=== PATIENT | male | born 1970 | race Caucasian/White ===

== ENCOUNTER 2020-01-03 13:50 | Inpatient (IN) | payer OTHER, SELFPAY ==
--- NOTE | ~2020-01-03 | CT_ITS ---
EXAMINATION: CT abdomen pelvis w con EXAM DATE: 01/03/2020 14:57 INDICATION: Nausea and vomiting. TECHNIQUE: Spiral CT of the abdomen and pelvis was performed following intravenous injection of 100 m L Omnipaque 350. Axial, coronal and sagittal images were reviewed. The dose-length product (DLP) fo r this examination was 723.19 mGy-cm. The exposure was tailored according to patient size (auto mA e xposure control), and iterative reconstruction (ASIR) was used as additional dose reduction technique . Comparison is made to prior examination from 11/09/2015. FINDINGS: There is large ulceration within the duodenal bulb, appears to be nearly through the wall. There is reactive edema in the region, but no free intraperitoneal gas or fluid, no perforation. The liver, spleen, adrenal glands and pancreas are unremarkable. Gallbladder is unremarkable. No bilia ry obstruction. Portal and splenic veins are patent. Kidneys enhance symmetrically. There is no hy dronephrosis. There is a 5 mm right inferior calyceal stone. The prostate is unremarkable. The blad get is unremarkable. There is no retroperitoneal or pelvic lymphadenopathy. There is mild scattere d arteriosclerotic disease. Small bilateral inguinal fat-containing hernias. Small umbilical fat-cont aining hernia. The appendix is not positively visualized. There is no pericecal inflammatory change to suggest appe ndicitis. There is moderate to large amount of colonic stool. No free intraperitoneal gas. The heart is normal in size. There are no pericardial or pleural effusions. The lung bases are unremark able. There are no osteoblastic or osteolytic lesions identified. IMPRESSION: 1. Severe duodenal bulb peptic ulcer disease without perforation. 2. Small fat-containing hernias. 3. Right nephrolithiasis. 4. Moderate to large amount of colonic stool Reviewed, dictated and finalized at location A.
[2020-01-03 13:53] VITALS: BP 171/114; PULSE 88; RESP 20; TEMP 36.4; O2SAT 99
[2020-01-03 14:16] LABS: Basophils Absolute Auto 0.1 K/mm3 (0.0-0.1); Basophils Percent Auto 0.5 % (0.2-1.2); Eosinophils Absolute Auto 0.2 K/mm3 (0-0.3); Eosinophils Percent Auto 1.6 % (0-4.4); Hematocrit 43.2 % (42.0-52.0); Hemoglobin 14.2 g/dL (14.0-18.0); Immature Granulocyte Absolute 0.05 K/mm3 (0.00-0.031); Immature Granulocyte Percent A 0.4 % (0-0.5); Lymphocytes Percent Auto 25.3 % (18.3-44.2); Mean Corpuscular HGB Conc 32.9 g/dl (32-36); Mean Corpuscular Hemoglobin 30.1 pg (26-34); Mean Corpuscular Volume 91.5 fl (80-100); Mean Platelet Volume 9.7 fl (7.4-10.4); Monocytes Percent Auto 7.6 % (2.6-8.5); Neutrophils Absolute Auto 8.4 K/mm3 (1.3-6.7); Neutrophils Percent Auto 64.6 % (45.5-73.1); Platelet Count Result 393 k/mm3 (150-375); Red Blood Count 4.72 M/mm3 (4.6-6.20); Red Cell Distribution Width 12.9 % (11.5-14.5)
--- NOTE | 2020-01-03 14:22 | ED.ABDPAIN ---
HPI - Abdominal Pain General Chief Complaint: Abdominal Pain Stated Complaint: abd Time Seen by Provider: 01/03/20 13:55 Source: patient Mode of arrival: ambulatory Limitations: no limitations History of Present Illness HPI narrative: This is a 49 year old male that presents to the ER for abdominal pain x 1 week. Reports sharp right sided abdominal pain. Reports he has been unable to have a bowel movement. Also reports nausea and vomiting. Reports he feels like he has not been able to urinate either. Denies fever, diarrhea, or dysuria. Related Data Home Medications Medication Instructions Recorded Confirmed No Home Medications 01/03/20 01/03/20 Allergies Allergy/AdvReac Type Severity Reaction Status Date / Time No Known Allergies Allergy Mild Verified 01/03/20 14:01 Review of Systems Review of Systems: Narrative: CONSTITUTIONAL: Denies fever GASTROINTESTINAL: Reports abdominal pain, nausea, vomiting. Denies diarrhea. GENITOURINARY: Denies dysuria or hematuria. All systems reviewed & are unremarkable except as noted in HPI and below PMFSH Past Medical History Medical History (Updated 01/03/20 @ 17:11 by Patti Santamaria PA-C) History of gastroesophageal reflux (GERD) Social History Social History (Updated 01/03/20 @ 14:24 by Patti Santamaria PA-C) Smoking status: Current every day smoker Substance use: never Exam Narrative: Exam Narrative: GENERAL: Well-appearing, well-nourished, and in mild acute distress due to pain. HEAD: Normocephalic, atraumatic. EYES: EOMI. CHEST: Clear to auscultation. No respiratory distress. No wheezes rales or rhonchi HEART: Regular rate and rhythm. No murmur heard. Normal peripheral pulses. ABDOMEN: Soft, nondistended, normal active bowel sounds. Tender to palpation of the right side of the abdomen, without guarding EXTREMITIES: Normal range of motion. No edema. SKIN: Warm, dry, no rash. NEURO: No focal deficits. Alert and oriented x3. PSYCH: Normal mood and affect Course Consultations Consultation #1: Spoke with Dr. Aguilar about patient and workup who would like to give patient option to stay for EGD tomorrow. Patient will be started on PPI. Date: 01/03/20 Time: 17:09 Consultation #2: Spoke with hospitalist about patient and work-up who accepts admission Date: 01/03/20 Time: 17:09 Vital Signs Vital signs: Vital Signs Temperature 97.5 F L 01/03/20 13:53 Pulse Rate 88 01/03/20 13:53 Respiratory Rate 20 01/03/20 13:53 Blood Pressure 171/114 H 01/03/20 13:53 Pulse Oximetry 99 01/03/20 13:53 Temperature 97.5 F L 01/03/20 13:53 Pulse Rate 79 01/03/20 16:15 Respiratory Rate 14 01/03/20 16:15 Blood Pressure 158/100 H 01/03/20 16:15 Pulse Oximetry 100 01/03/20 16:15 MDM - Abdominal Pain MDM Narrative Medical decision making narrative: Patient presents to the emergency department for abdominal pain for the last week. Patient is afebrile and nontoxic-appearing. CBC with mild leukocytosis to 13. Patient's hemoglobin is normal. Metabolic panel without acute changes. Lactic acid is not elevated. UA is normal. CT of the abdomen pelvis shows severe duodenal bulb ulcer disease without perforation. Spoke with Dr. Aguilar about patient and workup who would like to give patient option to stay for EGD tomorrow. Patient will be started on PPI. Spoke with the hospitalist about patient work-up who accepts admission Lab Data Attestation: I reviewed the patient's lab results. Result diagrams: 01/03/20 14:07 01/03/20 14:07 Labs: Lab Results 01/03/20 01/03/20 01/03/20 Range/Units 14:07 14:07 14:29 WBC 13.0 H (4.5-10.0) K/mm3 RBC 4.72 (4.6-6.20) M/mm3 Hgb 14.2 (14.0-18.0) g/dL Hct 43.2 (42.0-52.0) % MCV 91.5 (80-100) fl MCH 30.1 (26-34) pg MCHC 32.9 (32-36) g/dl RDW 12.9 (11.5-14.5) % Plt Count 393 H (150-375) k/mm3 MPV 9.7 (7.4-10.4) fl I
[2020-01-03] MEDS: ONDANSETRON INJ 4 MG/2 ML VIAL IV PUSH (14:27)
[2020-01-03] MEDS: MORPHINE SULFATE 4 MG/ML INJ IV PUSH ×2 (14:28→17:45)
[2020-01-03] MEDS: FAMOTIDINE 20 MG/2 ML VIAL IV PUSH (14:28)
[2020-01-03 14:30] LABS: Alanine Aminotransferase 12 U/L (4-50); Albumin Level 4.4 g/dL (3.5-5.1); Alkaline Phosphatase 91 U/L (38-126); Aspartate Amino Transferase 18 U/L (17-59); Bilirubin,Total < 0.1 mg/dL (0.2-1.3); Blood Urea Nitrogen 13 mg/dL (9-20); Calcium 9.5 mg/dL (8.4-10.2); Carbon Dioxide 30 mmol/L (22-30); Chloride 100 mmol/L (98-107); Estimated CRCL calculation 99 ml/min; Estimated Glomerular Filt Rate > 60; Glucose 113 mg/dL (75-110); Lipase 74 U/L (23-300); Potassium 4.3 mmol/L (3.4-5.0); Sodium 137 mmol/L (137-145)
[2020-01-03] MEDS: SODIUM CHLORIDE 0.9% IV 500 ML 999 ML IV CONT (14:31)
[2020-01-03 14:38] LABS: Add Urine Microscopic? NO; Appearance Urine Clear (Clear); Bilirubin Urine Negative (Negative); Blood Urine Negative (Negative); Color Urine Straw (Yellow); Glucose Urine UA Negative (Negative); Ketones Urine Negative (Negative); Leukocyte Esterase Ur Negative LEU/UL (Negative); Nitrate Urine Negative (Negative); Protein Urine Negative (Negative); Specific Grav Ur 1.012 (1.001-1.035); Urobilinogen Urine Negative mg/dL (<2.0)
[2020-01-03 14:47] LABS: Lactic Acid Reflex 1.7 mmol/L (0.7-2.1)
[2020-01-03] MEDS: PANTOPRAZOLE SODIUM IV 40 MG VIAL IV PUSH (16:05)
[2020-01-03 16:15] VITALS: BP 158/100; PULSE 79; RESP 14; O2SAT 100
[2020-01-03] MEDS: hydrALAZINE HCL 20 MG/ML VIAL 10 MG IV PUSH (17:07)
[2020-01-03] MEDS: METOCLOPRAMIDE HCL INJ 10 MG/2 ML VIAL IV PUSH (17:46)
[2020-01-03 17:51] VITALS: BP 145/92; PULSE 75; RESP 15; O2SAT 100
--- NOTE | 2020-01-03 18:06 | ADMGEN ---
This patient, Nain Hurley, was admitted to Medical Room 258-01. Patient/family oriented to hospital policies and general routines including ID bracelet, bed and alarms, visiting hours, pain management, procedures, bathroom and other care routines, personal items, smoking policy, room service/diet, and visiting hours. Valuables list has been completed. Information on how to activate the Rapid Response Team has been discussed. Patient/Family are encouraged to report perceived risks to care and to ask questions if they do not understand what they are told or what they should do.
[2020-01-03 18:30] VITALS: BP 138/71; PULSE 63; RESP 16; TEMP 36.9; O2SAT 100
--- NOTE | 2020-01-03 18:46 | PM.IMHP ---
H&P: HPI History of Present Illness Chief complaint: duodental ulcer Narrative: Nain Hurley is a 49 year old male that he had stomach problems on and off for many years. As far back as 2012. He has severe acid reflux in the patient stated that he has tried multiple things the past such as Pepto-Bismol, alk is also her, Gaviscon, Pepcid and ranitidine. The patient stated that he still continues to smoke. He has no prior history of any hypertension. Patient stated he stopped drinking alcohol in 2012 due to his stomach issues. He also avoid spicy foods. He stated that he did get scoped before and that he was told that he has severe acid reflux. The patient has had severe abdominal pain for at least 1 week. He stated that he has not been vomiting any blood. He did notice any dark stools and stated that his stools have been like abrahan. He also states that he is having difficulty urinating that he could not get it to come out when he wanted to. He denies any fever or chills. No vomiting or diarrhea. He is nauseated at this time. Patient was given IV Tylenol in the emergency room as well as Protonix IV. He was also given Pepcid IV. He is also given morphine in the emergency room. And I noticed that his blood pressure was highly elevated so I ordered some hydralazine. He was also given Reglan and Benadryl. The patient was complaining of some umbilical pain when I saw him in the emergency room and some nausea. CT of the abdomen was read as severe duodenal bulb peptic ulcer disease without perforation. Small fat containing hernias. Right nephro lysis. Moderate to large amount of colonic stool. GI has been consulted. GI give the patient the choice of being discharge in seeing them outpatient or being admitted. The patient decided to stay and be admitted. Date of service is 01/03/2020. Review of Systems Review of Systems: All systems reviewed & are unremarkable except as noted in HPI and below Constitutional: Constitutional: Reports as per HPI and Reports no additional constitutional complaints Eyes: Eyes: Reports as per HPI and Reports no additional eye complaints ENT: Reports system reviewed and no additional complaints, except as documented and Reports Normal hearing present Cardiovascular: Cardiovascular: Reports no additional cardiovascular complaints Respiratory: Respiratory: Reports no additional respiratory complaints and Reports no additional respiratory complaints Gastrointestinal: Gastrointestinal: Reports as per HPI and Reports no additional gastrointestinal complaints Musculoskeletal: Musculoskeletal: Reports no additional musculoskeletal complaints Integumentary/Breasts: Skin/Breast: Reports system reviewed and no additional complaints, except as docu and Reports as per HPI Neurologic: Reports system reviewed and no additional complaints, except as documented, Reports as per HPI and Reports Normal hearing present Psychiatric: Psychiatric: Reports no additional psychiatric complaints and Reports as per HPI Endocrine: Endocrine: Reports no additional endocrine complaints Hematologic/Lymphatic: Hematologic/Lymphatic: Reports no additional hematologic/lymphatic complaints Allergic/Immunologic: Allergic/Immunologic: Reports no additional allergic/immunologic complaints [facility] Past Medical History Medical History (Updated 01/03/20 @ 18:55 by Sommer Almanza NP) Gastroesophageal reflux disease History of gastroesophageal reflux (GERD) Kidney stones Myocardial infarction Narcolepsy Tobacco abuse Surgical History Surgical History (Updated 01/03/20 @ 18:55 by Sommer Almanza NP) H/O heart artery stent X2 Family History Family History Mother No problems noted. Father Heart attack Social History Social History (Updated 01/03/20 @ 19:07 by Sommer Almanza NP) Social History: The patient is single. He lives with his sister. He stated
[2020-01-03 20:00] VITALS: BMI 28.4
[2020-01-03] MEDS: BISACODYL 10 MG SUPPOSITORY RECTAL (21:07)
[2020-01-03 22:00] VITALS: BP 126/74; PULSE 77; RESP 21; TEMP 36.6; O2SAT 100
[2020-01-04] VITALS (8 sets, daily range): BP systolic 109–140; BP diastolic 69–89; PULSE 68–90; RESP 15–20; TEMP 36.6–36.8; O2SAT 98–100
[2020-01-04 06:05] LABS: Alanine Aminotransferase 11 U/L (4-50); Albumin Level 3.8 g/dL (3.5-5.1); Alkaline Phosphatase 82 U/L (38-126); Aspartate Amino Transferase 16 U/L (17-59); Bilirubin,Total 0.2 mg/dL (0.2-1.3); Blood Urea Nitrogen 9 mg/dL (9-20); Calcium 8.7 mg/dL (8.4-10.2); Carbon Dioxide 29 mmol/L (22-30); Chloride 103 mmol/L (98-107); Estimated CRCL calculation 89 ml/min; Estimated Glomerular Filt Rate > 60; Glucose 90 mg/dL (75-110); Magnesium 2.1 mg/dL (1.6-2.3); Potassium 4.2 mmol/L (3.4-5.0); Sodium 137 mmol/L (137-145)
[2020-01-04 06:10] LABS: Basophils Absolute Auto 0.1 K/mm3 (0.0-0.1); Basophils Percent Auto 0.7 % (0.2-1.2); Eosinophils Absolute Auto 0.3 K/mm3 (0-0.3); Eosinophils Percent Auto 3.4 % (0-4.4); Hematocrit 40.1 % (42.0-52.0); Hemoglobin 12.9 g/dL (14.0-18.0); Immature Granulocyte Absolute 0.03 K/mm3 (0.00-0.031); Immature Granulocyte Percent A 0.3 % (0-0.5); Lymphocytes Absolute Auto 3.22 K/mm3 (0.9-3.2); Lymphocytes Percent Auto 36.1 % (18.3-44.2); Mean Corpuscular HGB Conc 32.2 g/dl (32-36); Mean Corpuscular Hemoglobin 29.8 pg (26-34); Mean Corpuscular Volume 92.6 fl (80-100); Mean Platelet Volume 9.8 fl (7.4-10.4); Monocytes Absolute Auto 0.6 K/mm3 (0.1-0.6); Monocytes Percent Auto 7.2 % (2.6-8.5); Neutrophils Absolute Auto 4.7 K/mm3 (1.3-6.7); Neutrophils Percent Auto 52.3 % (45.5-73.1); Platelet Count Result 352 k/mm3 (150-375); Red Blood Count 4.33 M/mm3 (4.6-6.20); White Blood Count 8.9 K/mm3 (4.5-10.0)
--- NOTE | 2020-01-04 06:35 | WPDANESEPP ---
Anes - Eval Pre Procedure Procedure: Operation Date: 01/04/20 07:30 Proposed Procedures p Esophagogastroduodenoscopy - Vipul Aguilar MD Date/Time: 01/04/20 06:35 Pre Op Diagnosis: duodental ulcer Patient Data Age: 49 Gender: M Height: 1.75 m Weight: 87.3 kg Last Vital Signs Temp 36.6 C 01/03/20 22:00 Pulse 77 01/03/20 22:00 Resp 21 H 01/03/20 22:00 BP 126/74 01/03/20 22:00 Pulse Ox 100 01/03/20 22:00 Allergies Allergy/AdvReac Type Severity Reaction Status Date / Time No Known Allergies Allergy Mild Verified 01/03/20 14:01 Home Medications Medication Instructions Recorded Confirmed Type No Home Medications 01/03/20 01/03/20 History Laboratory Tests 01/03/20 01/03/20 01/03/20 14:07 14:07 14:29 WBC 13.0 K/mm3 H K/mm3 (4.5-10.0) RBC 4.72 M/mm3 M/mm3 (4.6-6.20) Hgb 14.2 g/dL g/dL (14.0-18.0) Hct 43.2 % % (42.0-52.0) MCV 91.5 fl fl (80-100) MCH 30.1 pg pg (26-34) MCHC 32.9 g/dl g/dl (32-36) RDW 12.9 % % (11.5-14.5) Plt Count 393 k/mm3 H k/mm3 (150-375) MPV 9.7 fl fl (7.4-10.4) Immature Gran % (Auto) 0.4 % % (0-0.5) Neut % (Auto) 64.6 % % (45.5-73.1) Lymph % (Auto) 25.3 % % (18.3-44.2) [place] % (Auto) 7.6 % % (2.6-8.5) Eos % (Auto) 1.6 % % (0-4.4) Baso % (Auto) 0.5 % % (0.2-1.2) Lymph # (Auto) 3.30 K/mm3 H K/mm3 (0.9-3.2) [place] # (Auto) 1.0 K/mm3 H K/mm3 (0.1-0.6) Eos # (Auto) 0.2 K/mm3 K/mm3 (0-0.3) Baso # (Auto) 0.1 K/mm3 K/mm3 (0.0-0.1) Abs Immat Gran (auto) 0.05 K/mm3 H K/mm3 (0.00-0.031) Absolute Neuts (auto) 8.4 K/mm3 H K/mm3 (1.3-6.7) Absolute Nucleated RBC 0.0 K/mm3 K/mm3 (0.0-0.012) Nucleated RBC % 0.0 % % (0.0-0.2) Sodium 137 mmol/L mmol/L (137-145) Potassium 4.3 mmol/L mmol/L (3.4-5.0) Chloride 100 mmol/L mmol/L (98-107) Carbon Dioxide 30 mmol/L mmol/L (22-30) BUN 13 mg/dL mg/dL (9-20) Creatinine 0.80 mg/dL mg/dL (0.7-1.3) Estim Creat Clear Calc 99 ml/min ml/min Estimated GFR > 60 (59 - ) Glucose 113 mg/dL H mg/dL (75-110) Lactic Acid Calcium 9.5 mg/dL mg/dL (8.4-10.2) Magnesium Total Bilirubin < 0.1 mg/dL L mg/dL (0.2-1.3) AST 18 U/L U/L (17-59) ALT 12 U/L U/L (4-50) Alkaline Phosphatase 91 U/L U/L (38-126) Total Protein 7.0 g/dL g/dL (6.3-8.2) Albumin 4.4 g/dL g/dL (3.5-5.1) Lipase 74 U/L U/L (23-300) TSH (Reflex) Urine Color Straw (Yellow) Urine Appearance Clear (Clear) Urine pH 8.0 (5.0-9.0) Ur Specific [place] 1.012 (1.001-1.035) Urine Protein Negative mg/dL mg/dL (Negative) Urine Glucose (UA) Negative mg/dL mg/dL (Negative) Urine Ketones Negative mg/dL mg/dL (Negative) Ur Blood (Man) Negative (Negative) Urine Nitrate Negative (Negative) Urine Bilirubin Negative (Negative) Urine Urobilinogen Negative mg/dL mg/dL (<2.0) Leukocyte Esterase Rfl Negative ANT/UL ANT/UL (Negative) 01/03/20 01/04/20 01/04/20 14:29 05:35 05:35 WBC 8.9 K/mm3 K/mm3 (4.5-10.0) RBC 4.33 M/mm3 L M/mm3 (4.6-6.20) Hgb 12.9 g/dL L g/dL (14.0-18.0) Hct 40.1 % L % (42.0-52.0) MCV 92.6 fl fl (80-100) MCH 29.8 pg pg (26-34) MCHC 32.2 g/dl g/dl (32-36) RDW 13.0 % % (11.5-14.5) Plt Count 352 k/mm3 k/mm3 (150-375) MPV 9.8 fl fl (7.4-10.4) Immature Gran % (Auto) 0.3 % % (0-0.5) Neut % (Auto) 52
--- NOTE | 2020-01-04 06:38 | PC.NURSE ---
Gave report to nurse from endoscopy lab. Coming to get patient. Sent to endoscopy lab
[2020-01-04] MEDS: LACTATED RINGERS 1,000 ML 150 ML IV CONT (07:01)
--- NOTE | 2020-01-04 07:23 | WPDANESEFPP ---
Anes - Eval Final PreProcedure Day of Procedure 01/04/20 07:23 Patient weight: overweight Heart: regular rate and rhythm Lungs: clear to auscultation Airway: Mallampati scale class II Neurological: alert and oriented Last oral intake: >/= 8 hours ASA classification: III Emergent: yes Anesthetic plan: proceed Anesthesia type and monitoring: general GIVS and standard monitoring Informed Consent: The patient's anesthetic plan and its attendant risks and benefits were discussed with the patient/family/POA. Questions were solicited and answers provided to the satisfaction of the patient/family/POA.
[2020-01-04] MEDS: SUCRALFATE 1 GM TABLET PO ×4 (08:10→20:40)
[2020-01-04] MEDS: PANTOPRAZOLE SODIUM IV 40 MG VIAL IV PUSH ×2 (08:11→17:53)
--- NOTE | 2020-01-04 08:18 | WPDGICN ---
Assessment and Plan Assessment and plan (1) Duodenal ulcer: Code(s): K26.9 - Duodenal ulcer, unspecified as acute or chronic, without hemorrhage or perforation Status: Acute Assessment and Plan: abnormal CT scan c/w ulcer. Will proceed with EGD today, more recommendations after EGD. Continue with PPI IV and avoid nsaid's (2) Gastroesophageal reflux disease: Qualifiers: Esophagitis presence: esophagitis presence not specified Qualified Code(s): K21.9 - Gastro-esophageal reflux disease without esophagitis Code(s): K21.9 - Gastro-esophageal reflux disease without esophagitis Status: Chronic Assessment and Plan: symptomatic GERD, will assess with egd (3) Upper abdominal pain: Code(s): R10.10 - Upper abdominal pain, unspecified Status: Acute (4) Nausea: Code(s): R11.0 - Nausea Status: Acute Assessment and Plan: EGD today (5) Colon cancer screening: Code(s): Z12.11 - Encounter for screening for malignant neoplasm of colon Status: Acute Assessment and Plan: he will need a colonoscopy as outpatient, never had one. Will set up (6) Tobacco abuse: Code(s): Z72.0 - Tobacco use Status: Chronic GI Consult Note Consult date/time: 01/04/20 08:18 Reason for consult: abdominal pain, abnormal CT scan abdomen HPI: Nain Hurley is a 49 year old male with history of stomach problems for many years at least since 2013 with GERD, tried multiple medications such as Pepto-Bismol, Gaviscon, Pepcid and ranitidine. He has been complaining of severe abdominal pain, mostly upper location for at least 1 week with nausea, denies melena or blood in stools. Also having difficulty urinating. He came to ER, given IV Tylenol, Protonix, pepcid and reglan IV. CT of the abdomen was read as severe duodenal bulb peptic ulcer disease without perforation. Small fat containing hernias. He was admitted to the hospital, continue with protonix IV and NPO status. Pain is almost gone today. Review of Systems Constitutional: Constitutional: Denies headache(s) and Denies weakness Eyes: Eyes: Denies blurry vision ENT: Reports Normal hearing present, Denies headache(s) and Denies neck pain Cardiovascular: Cardiovascular: Denies chest pain and Denies dyspnea Respiratory: Respiratory: Denies dyspnea Gastrointestinal: Gastrointestinal: Reports abdominal pain, Denies melena and Reports nausea Genitourinary: Genitourinary: Reports urinary urgency Musculoskeletal: Musculoskeletal: Denies neck pain Integumentary/Breasts: Skin/Breast: Denies dry skin Neurologic: Reports Normal hearing present, Denies headache(s) and Denies weakness Psychiatric: Psychiatric: Denies anxiety Endocrine: Endocrine: Denies change in body appearance Hematologic/Lymphatic: Hematologic/Lymphatic: Denies easy bleeding Allergic/Immunologic: Allergic/Immunologic: Denies urticaria PMFSH Past Medical History Medical History Gastroesophageal reflux disease History of gastroesophageal reflux (GERD) Kidney stones Myocardial infarction Narcolepsy Tobacco abuse Surgical History Surgical History (Updated 01/03/20 @ 18:55 by Sommer Almanza NP) H/O heart artery stent X2 Family History Family History Mother No problems noted. Father Heart attack Social History Social History (Updated 01/03/20 @ 19:07 by Sommer Almanza NP) Social History: The patient is single. He lives with his sister. He stated he stopped drinking alcohol in 2012. Patient occasionally holds marijuana. Patient is single and does not have any children. 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 His mother and sister are considered his durable power mergers and acquisitions attorney for healthcare. Patient desires to be a full code. The patient has been smoking since the age of 15 and still continues to
--- NOTE | 2020-01-04 13:25 | PM.IMPN ---
Progress Note: A&P Assessment and Plan (1) Duodenal ulcer: Code(s): K26.9 - Duodenal ulcer, unspecified as acute or chronic, without hemorrhage or perforation Status: Acute Assessment and Plan: CT abd/pelvis revealed severe duodenal bulb peptic ulcer disease without perforation. GI is on board and he underwent EGD today which revealed reflux esophagitis with linear ulcers, small hiatal hernia, 5mm x 6mm superficial ulcer in the antrum, and a cratered ulcer in the duodenal bulb ranging in size from 20mm to 25mm. Biopsies were obtained. Continue IV PPI, he will need long-term PPI BID given EGD findings per GI Carafate will be added by GI He will need repeat EGD in 6 months to assess for healing and will have a screening colonoscopy at that time per GI Await H. pylori testing and biopsy results Continue zofran PRN Continue analgesics PRN Avoid NSAIDs ASA is on hold. GI recommends to hold this for 10 days due to his severe PUD. (2) Elevated blood pressure reading: Code(s): R03.0 - Elevated blood-pressure reading, without diagnosis of hypertension Status: Acute Assessment and Plan: Blood pressures were reviewed from 01/03 and are well-controlled. His initial BP elevations were likely due to pain. Continue to monitor Continue IV hydralazine PRN (3) Gastroesophageal reflux disease: Qualifiers: Esophagitis presence: esophagitis presence not specified Qualified Code(s): K21.9 - Gastro-esophageal reflux disease without esophagitis Code(s): K21.9 - Gastro-esophageal reflux disease without esophagitis Status: Chronic Assessment and Plan: He reports taking ranitidine intermittently when he had pain but did not take this daily prior to admission. Continue IV protonix and plan to transition to protonix BID at discharge per GI (4) Tobacco abuse: Code(s): Z72.0 - Tobacco use Status: Chronic Assessment and Plan: Continue to encourage smoking cessation The patient declined nicotine patch (5) Dysuria: Code(s): R30.0 - Dysuria Status: Acute Assessment and Plan: He reports dysuria for 6 months. UA was completely negative. Will perform gonorrhea and chlamydia testing Additional Plan Will add colace scheduled and miralax PRN for constipation. Time Spent With Patient Time with patient: 15 - 25 minutes Subjective Date/time seen: 01/04/20 13:25 Interval history: Mr. Hurley is seen and examined at bedside in follow-up for PUD. He underwent EGD today. He is still having RUQ abdominal discomfort but does believe it is improving. He denies nausea and vomiting. He was very hungry due to not eating for the past several days due to pain and tolerated a soft diet well. He denies chest pain and shortness of breath. He reports dysuria intermittently for 6 months. He denies discharge. He has no other complaints at this time. Review of Systems Review of Systems: All systems reviewed & are unremarkable except as noted in HPI and below Exam Narrative: Exam Narrative: General: Cooperative, well-developed, and well-nourished 49 y.o. male sitting in the chair. He is non-toxic in appearance and in no acute distress. HEENT: Normocephalic and atraumatic. Conjunctivae and lids normal. PERRL. EOMI. Mucous membranes moist. Posterior pharynx without erythema or exudate. Neck: Supple without lymphadenopathy or masses. Cardiac: Regular rate and rhythm. S1 and S2 normal. No murmur appreciated. Lungs: Effort normal. Lungs are clear to auscultation bilaterally. Abdomen: Appearance grossly normal. Bowel sounds are normoactive. Abdomen tender in the RUQ to palpation. Abdomen soft and non-distended. Extremities: No lower extremity edema. [place] sign negative. DP and PT palpable bilaterally. Neurological: Alert. No focal neurological deficits noted. Speech is clear. Skin: Warm and dry. Psychiatric: Judgment and insigh
[2020-01-04] MEDS: DOCUSATE SODIUM 100 MG CAPSULE PO (20:40)
[2020-01-04] MEDS: ONDANSETRON INJ 4 MG/2 ML VIAL IV PUSH (20:45)
[2020-01-05 04:00] VITALS: BP 116/74; PULSE 62; RESP 18; TEMP 36.4; O2SAT 98
[2020-01-05 05:22] LABS: Hematocrit 37.9 % (42.0-52.0); Hemoglobin 12.4 g/dL (14.0-18.0); Mean Corpuscular HGB Conc 32.7 g/dl (32-36); Mean Corpuscular Hemoglobin 29.9 pg (26-34); Mean Corpuscular Volume 91.3 fl (80-100); Mean Platelet Volume 9.3 fl (7.4-10.4); Platelet Count Result 333 k/mm3 (150-375); Red Blood Count 4.15 M/mm3 (4.6-6.20); Red Cell Distribution Width 12.8 % (11.5-14.5); White Blood Count 7.5 K/mm3 (4.5-10.0)
[2020-01-05 05:35] LABS: Blood Urea Nitrogen 12 mg/dL (9-20); Calcium 8.6 mg/dL (8.4-10.2); Carbon Dioxide 30 mmol/L (22-30); Chloride 102 mmol/L (98-107); Estimated CRCL calculation 89 ml/min; Estimated Glomerular Filt Rate > 60; Glucose 91 mg/dL (75-110); Potassium 4.3 mmol/L (3.4-5.0); Sodium 135 mmol/L (137-145)
[2020-01-05] MEDS: SUCRALFATE 1 GM TABLET PO ×2 (06:39→10:24)
[2020-01-05 08:00] VITALS: PULSE 62; RESP 18; O2SAT 98
[2020-01-05] MEDS: PANTOPRAZOLE SODIUM IV 40 MG VIAL IV PUSH (08:25)
[2020-01-05] MEDS: DOCUSATE SODIUM 100 MG CAPSULE PO (08:25)
--- NOTE | 2020-01-05 13:36 | WPDGIPROGNO ---
Progress Note: A&P Assessment and Plan (1) Duodenal ulcer: Code(s): K26.9 - Duodenal ulcer, unspecified as acute or chronic, without hemorrhage or perforation Status: Acute Assessment and Plan: EGD yesterday with large du, small small and esophagitis. Urszula-test negative continue with ppi bid (will need adjunct faculty for medical terminology) hold aspirin another 10 days repeat EGD in ~ 6 months to assess for healing no contraindications to go home by GI standpoint (2) Upper abdominal pain: Code(s): R10.10 - Upper abdominal pain, unspecified Status: Acute (3) Nausea: Code(s): R11.0 - Nausea Status: Acute (4) Gastroesophageal reflux disease: Qualifiers: Esophagitis presence: esophagitis presence not specified Qualified Code(s): K21.9 - Gastro-esophageal reflux disease without esophagitis Code(s): K21.9 - Gastro-esophageal reflux disease without esophagitis Status: Chronic (5) Colon cancer screening: Code(s): Z12.11 - Encounter for screening for malignant neoplasm of colon Status: Acute Assessment and Plan: never had a colonoscopy, we can do it as outpatient when he is back for his repeat EGD Subjective Date/time seen: 01/05/20 13:36 Interval history: overall feeling better, minimal pain but is improved Review of Systems Review of Systems: All systems reviewed & are unremarkable except as noted in HPI and below Exam Const: General: comfortable and no acute distress HENMT: General nose exam: Normal nares present Eyes: General: appearance normal, both eyes and all related structures Neck: Neck: no JVD Resp: Auscultation: clear to auscultation bilaterally Cardio: Rate: regular rate Rhythm: regular rhythm GI: Inspection: non-distended GI Palp: Yes Soft to palpation Skin: General skin exam: normal color Neuro: General: gait normal Speech: normal speech Extrem: General: normal to inspection Psych: Mental Status: mental status grossly normal Objective Data Vital Signs Vital Signs: Vital Signs - 24 hr 01/04/20 14:00 01/04/20 20:00 01/05/20 04:00 Temperature 97.8 F 98.1 F 97.6 F Pulse Rate 71 72 62 Respiratory Rate 16 18 18 Blood Pressure 140/78 116/69 116/74 Pulse Oximetry 100 98 98 01/05/20 08:00 Temperature Pulse Rate 62 Respiratory Rate 18 Blood Pressure Pulse Oximetry 98 Intake/Output Intake/Output: Intake & Output 01/02/20 01/03/20 01/04/20 01/05/20 23:59 23:59 23:59 23:59 Intake Total 600 1250 1320 Output Total 600 500 Balance 600 650 820 Meds/Results Medications: Active Medications Generic Name Dose Route Start Last Admin Trade Name Freq PRN Reason Stop Dose Admin Acetaminophen 650 mg 01/04/20 14:17 Tylenol Tablet PO Q4H PRN Mild Pain (1-3) or Fever Hydrocodone Bitart/Acetaminophen 1 tab 01/04/20 14:17 01/04/20 20:52 [place] 5-325 Mg PO 1 tab Q4H PRN Administration Pain Rated 4-6 Docusate Sodium 100 mg 01/04/20 21:00 01/05/20 08:25 Colace Capsule PO 100 mg Q12HR CAROL Administration Hydralazine HCl 10 mg 01/03/20 19:14 Apresoline Hcl Inj IV PUSH Q8H PRN Blood Pressure - High Ondansetron HCl 4 mg 01/03/20 19:13 01/04/20 20:45 Zofran Inj IV PUSH 4 mg Q4H PRN Administration Nausea And Vomiting Pantoprazole Sodium 40 mg 01/04/20 09:00 01/05/20 08:25 Protonix Iv IV PUSH 40 mg BID CAROL Administration Polyethylene Glycol 17 gm 01/04/20 14:18 Miralax PO QAM PRN Constipation Sucralfate 1 gm 01/04/20 08:00 01/05/20 10:24 Carafate PO 1 gm ACHS CAROL Administration Radiology Results: ITS Impressions Abdomen/Pelvis CT 01/03/20 15:09 IMPRESSION: 1. Severe duodenal bulb peptic ulcer disease without perforation. 2. Small fat-containing hernias. 3. Right nephrolithiasis. 4. Moderate to large amount of colonic stool Labs Labs: Laboratory Results - last 24 hr
[2020-01-05 14:00] VITALS: BP 116/57; PULSE 86; RESP 19; TEMP 37.1; O2SAT 98
--- NOTE | 2020-01-05 14:54 | PC.NURSE ---
Found patient returning to room in street clothes. Patient is very upset that he has not been seen by a physician yet today and is very adamant about going home. I told the patient that I spoke with his doctor and she said she would be by to see him shortly. He stated she better be. I educated the patient on current hospital policy about leaving the floor. Will continue to monitor.
--- NOTE | 2020-01-05 15:47 | PM.DS ---
DS: Admitting Diagnosis Admitting Diagnosis Admitting Diagnosis: Duodenal ulcer, unspecified as acute or chronic, without hemorrhage or perforation DS: Discharge Diagnosis Discharge Diagnosis (1) Duodenal ulcer: Code(s): K26.9 - Duodenal ulcer, unspecified as acute or chronic, without hemorrhage or perforation Status: Acute Assessment and Plan: He underwent EGD on 01/04/20 by associate of science in nursing Dr. Uriarte which revealed reflux esophagitis with linear ulcers, small hiatal hernia, 5mm x 6mm superficial ulcer in the antrum, and a cratered ulcer in the duodenal bulb ranging in size from 20mm to 25mm. Biopsies were obtained. He will begin p.o. Protonix and sucralfate. He will hold his daily aspirin for 10 days, per GI recommendations. He will follow-up with Dr. Uriarte in 6 months for repeat EGD to assess for healing and will undergo screening colonoscopy at that time. (2) Elevated blood pressure reading: Code(s): R03.0 - Elevated blood-pressure reading, without diagnosis of hypertension Status: Acute Assessment and Plan: He initially had elevated blood pressure readings at time of presentation to ER with highest 158/100. Following blood pressures were all within normal range. These elevated readings were likely due to pain. Blood pressure should be monitored as an outpatient at follow-up PCP appointment. At time of discharge, his blood pressure was stable at 116/57 (3) Gastroesophageal reflux disease: Qualifiers: Esophagitis presence: esophagitis presence not specified Qualified Code(s): K21.9 - Gastro-esophageal reflux disease without esophagitis Code(s): K21.9 - Gastro-esophageal reflux disease without esophagitis Status: Chronic Assessment and Plan: Previously took ranitidine intermittently. He will continue taking Protonix daily. (4) Tobacco abuse: Code(s): Z72.0 - Tobacco use Status: Chronic Assessment and Plan: I spent approximately 5 minutes discussing smoking cessation, however patient was uninterested. He is not motivated to quit. He declined nicotine patch during his stay. He should follow-up with his PCP to discuss further smoking cessation. (5) Dysuria: Code(s): R30.0 - Dysuria Status: Acute Assessment and Plan: He complained of dysuria which has been ongoing approximately 6 months. UA was clear. He has a right inferior calyceal stone, however this is unlikely to cause dysuria given its location. Gonorrhea and chlamydia testing was performed and results are pending. These results will be followed and I will call patient if treatment is required. The patient is aware. DS: Summary Hospital Course Reason for hospitalization: Abdominal pain Hospital Course: Nain Luna is a 49-year-old male who presented to the emergency department on 01/03/2020 with complaints of abdominal pain ongoing approximately 1 week with associated nausea and vomiting. Presentation, WBC 13.0, hemoglobin 14.2, hematocrit 43.2, platelets 393, CMP within normal limits, lipase 74, urinalysis negative, and abdomen pelvis CT revealing severe duodenal bulb peptic ulcer disease without perforation as well as small fat containing hernia and right nephrolithiasis. He was admitted to the hospitalist service on 01/03/2020 for peptic ulcer disease. He was seen in consultation by Dr. Uriarte who performed an EGD on 01/04/2020. Patient was initiated on Protonix and sucralfate. He was able to advance his diet without difficulty. His abdominal pain improved. He denied any nausea or vomiting. He will follow-up with Dr. Uriarte in 6 months for repeat EGD to assess for healing as well as undergo screening colonoscopy at that time. Given his improvement of symptoms, he was felt to no longer require inpatient care. He will continue his medications as an outpatient and follow-up appropriately. He will hold aspirin for 10 days, per GI recom
== END 2020-01-05 16:50 | disposition home or self-care (01) | DRG 241 ==
LOC: ANHED 17:11 → ANH2MED 17:28
PROVIDERS: Internal Medicine Gastroenterology; Nurse Practitioner; Physician Assistant; Admitting Provider Internal Medicine; Emergency Provider Emergency Medicine; Visit Provider Physician Assistant
PROC: 0DJ08ZZ Inspection of Upper Intestinal Tract, Via Natural or Artificial Opening Endoscopic (ICD-10-PCS; CPT 43235; principal; 2020-01-04 07:30)
DX: K26.9 Duodenal ulcer, unspecified as acute or chronic, without hemorrhage or perforation (principal); K25.9 Gastric ulcer, unspecified as acute or chronic, without hemorrhage or perforation; K21.0 Gastro-esophageal reflux disease with esophagitis; K44.9 Diaphragmatic hernia without obstruction or gangrene; F17.210 Nicotine dependence, cigarettes, uncomplicated; Z87.442 Personal history of urinary calculi; I25.2 Old myocardial infarction
CPT/HCPCS: 36415; 74177; 80048; 80053; 81003; 83605; 83690; 83735; 84443; 85025; 85027; 87081; 87486; 87491; 87591; 88305; 88342; 96365; 96375; 96376; 99285; A9270; C9113; J0131; J0360; J1200; J2270; J2405; J2704; J2765; J7040; J7120; Q9967

== ENCOUNTER 2020-01-13 10:05 | Outpatient (CLI) | payer OTHER, SELFPAY ==
[2020-01-13 10:43] LABS: Cholesterol 167 mg/dL (0-200); HDL Direct 63 mg/dL; Triglycerides 54 mg/dL (<150)
[2020-01-13 10:54] LABS: LDL Cholesterol Direct 82 mg/dL
[2020-01-13 11:14] LABS: Prostate Specific Antigen 0.6 ng/mL (< OR = 4.0)
[2020-01-15 10:43] LABS: Gastrin 100 pg/mL (<=100)
[2020-01-18 16:51] LABS: Chromogranin A 573 ng/mL (25-140)
== END 2020-01-13 10:06 | disposition home or self-care (01) ==
LOC: ANHLAB 10:06
PROVIDERS: PCP Internal Medicine; Visit Provider Internal Medicine
DX: K26.9 Duodenal ulcer, unspecified as acute or chronic, without hemorrhage or perforation (principal); Z12.5 Encounter for screening for malignant neoplasm of prostate; E78.5 Hyperlipidemia, unspecified
CPT/HCPCS: 36415; 80061; 82941; 84153; 86316; G0103

== ENCOUNTER 2020-03-18 21:42 | Emergency (ER) | payer OTHER, SELFPAY ==
--- NOTE | ~2020-03-18 | CT_ITS ---
EXAMINATION: CT abdomen pelvis w con DATE: 03/19/2020 00:29 INDICATION: Right upper quadrant abdominal pain TECHNIQUE: Computed tomography (CT) of the abdomen and pelvis was performed with 100 mL Omnipaque-350 intravenous contrast. Automated exposure control and iterative reconstruction technique were employe d. The dose-length product was 569.01 mGy-cm. COMPARISON: 01/03/2020 FINDINGS: Lung bases are clear. Heart size is normal. No pericardial or pleural effusion. Atherosclerotic coron tavares artery calcification. Liver, gallbladder, spleen, pancreas, bilateral adrenal glands and left kid nik are normal. 3 mm nonobstructing stone at the lower pole of the right kidney. Interval decrease in the degree of wall thickening and inflammatory stranding in the region of the ulcer at the proximal bulb. Bowels including the appendix are normal. Bladder is normal. Small bilateral fat-containing ing uinal hernias. Small fat-containing umbilical hernia. No free intraperitoneal gas or fluid. No pathol ogically enlarged abdominal or pelvic lymphadenopathy. Chronic mild anterior wedging at T11-L1. IMPRESSION: 1. Duodenal bulb peptic ulcer disease with no perforation and with interval decrease in the degree of surrounding inflammatory stranding. 2. 3 mm nonobstructing right renal stone. 3. Small fat-containing umbilical and bilateral inguinal hernias. Reviewed, dictated and finalized at location A. IMPRESSION: 1. Duodenal bulb peptic ulcer disease with no perforation and with interval dec rease in the degree of surrounding inflammatory stranding. 2. 3 mm nonobstructing right renal stone. 3. Small fat-containing umbilical and bilateral inguinal hernias.
[2020-03-18 21:49] VITALS: BP 152/95; PULSE 81; RESP 20; TEMP 36.6; O2SAT 98
[2020-03-18 22:29] LABS: Basophils Absolute Auto 0.1 K/mm3 (0.0-0.1); Basophils Percent Auto 0.6 % (0.2-1.2); Eosinophils Absolute Auto 0.3 K/mm3 (0-0.3); Eosinophils Percent Auto 2.6 % (0-4.4); Hematocrit 41.4 % (42.0-52.0); Hemoglobin 13.5 g/dL (14.0-18.0); Immature Granulocyte Absolute 0.02 K/mm3 (0.00-0.031); Immature Granulocyte Percent A 0.2 % (0-0.5); Lymphocytes Percent Auto 29.3 % (18.3-44.2); Mean Corpuscular HGB Conc 32.6 g/dl (32-36); Mean Corpuscular Hemoglobin 28.7 pg (26-34); Mean Corpuscular Volume 87.9 fl (80-100); Mean Platelet Volume 9.8 fl (7.4-10.4); Monocytes Absolute Auto 0.9 K/mm3 (0.1-0.6); Monocytes Percent Auto 8.3 % (2.6-8.5); Platelet Count Result 362 k/mm3 (150-375); Red Blood Count 4.71 M/mm3 (4.6-6.20); White Blood Count 10.2 K/mm3 (4.5-10.0)
[2020-03-18 22:37] LABS: Add Urine Microscopic? YES; Appearance Urine Cloudy (Clear); Bacteria Urine Trace /hpf; Bilirubin Urine Negative (Negative); Blood Urine Negative (Negative); Budding Yeast Urine Present /hpf; Color Urine Yellow (Yellow); Glucose Urine UA Negative (Negative); Ketones Urine Negative (Negative); Leukocyte Esterase Ur Negative LEU/UL (Negative); Mucus Urine Rare /lpf; Nitrate Urine Negative (Negative); Protein Urine Negative (Negative); Specific Grav Ur 1.018 (1.001-1.035); Urobilinogen Urine Negative mg/dL (<2.0)
[2020-03-18 22:38] LABS: Amorphous Sediment Urine Few
[2020-03-18 22:41] LABS: Alanine Aminotransferase 13 U/L (4-50); Albumin Level 4.2 g/dL (3.5-5.1); Alkaline Phosphatase 73 U/L (38-126); Anion Gap 8 mmol/L (8-16); Aspartate Amino Transferase 18 U/L (17-59); Bilirubin,Total < 0.1 mg/dL (0.2-1.3); Blood Urea Nitrogen 12 mg/dL (9-20); Calcium 9.1 mg/dL (8.4-10.2); Carbon Dioxide 31 mmol/L (22-30); Chloride 98 mmol/L (98-107); Estimated Glomerular Filt Rate > 60; Glucose 115 mg/dL (75-110); Lipase 71 U/L (23-300); Potassium 4.3 mmol/L (3.4-5.0); Sodium 137 mmol/L (137-145)
--- NOTE | 2020-03-19 | ED.ABDPAIN ---
HPI - Abdominal Pain General Chief Complaint: Abdominal Pain Stated Complaint: abd pain Time Seen by Provider: 03/18/20 23:55 History of Present Illness HPI narrative: Patient presents with right upper abdominal pain for a week. Getting worse today. Gives a greater than 10. He vomited 15 minutes ago. He has a history of ulcer and kidney stones. He has not taken any pain medicine for this. He has not had cough fever chills or sweats. Denies any surgical history. MD elicited complaint: abdominal pain Pertinent past history: kidney stones and other (Gastric ulcer) Onset (ago): day(s) Pain Consistency: constant Location: RUQ Severity: severe Radiation: none Migration to: no migration Exacerbating factors: nothing Relieving factors: nothing Associated symptoms: nausea and vomiting Related Data Allergies Allergy/AdvReac Type Severity Reaction Status Date / Time No Known Allergies Allergy Mild Verified 03/18/20 21:52 Review of Systems Review of Systems: Narrative: CONSTITUTIONAL: Denies fever, chills, or sweats. EYES: Denies visual changes, redness, or discharge. ENT: Denies rhinorrhea, congestion, sore throat, or otalgia. CARDIOVASCULAR: Denies chest pain, palpitations, or edema. RESPIRATORY: Denies cough or dyspnea. GASTROINTESTINAL: He has abdominal pain, nausea, vomiting, but notr diarrhea. GENITOURINARY: Denies dysuria or hematuria. SKIN: Denies rash or itching. MUSCULOSKELETAL: Denies back pain, joint pain, or myalgia. [facility] Past Medical History Medical History Colon cancer screening Gastroesophageal reflux disease History of gastroesophageal reflux (GERD) Kidney stones Myocardial infarction Narcolepsy Nausea Tobacco abuse Upper abdominal pain Surgical History Surgical History H/O heart artery stent X2 Social History Social History Social History: The patient is single. He lives with his sister. He stated he stopped drinking alcohol in 2012. Patient occasionally holds marijuana. Patient is single and does not have any children. 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 His mother and sister are considered his durable power collections attorney for healthcare. Patient desires to be a full code. The patient has been smoking since the age of 15 and still continues to smoke. 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 HEAD: Normocephalic, atraumatic. EYES: PERRLA and EOMI. ENT: Nares clear, no rhinorrhea or epistaxis. Mucous membranes moist. NECK: Supple. CHEST: Clear to auscultation. No respiratory distress. HEART: Regular rate and rhythm. No murmur heard. Normal peripheral pulses. ABDOMEN: Soft, nontender, nondistended, normal active bowel sounds. EXTREMITIES: Normal range of motion. No edema. SKIN: Warm, dry, no rash. NEURO: No focal deficits. Alert and oriented x3. PSYCH: Seems uncomfortable. Course Vital Signs Vital signs: Vital Signs Temperature 97.9 F 03/18/20 21:49 Pulse Rate 81 03/18/20 21:49 Respiratory Rate 20 03/18/20 21:49 Blood Pressure 152/95 H 03/18/20 21:49 Pulse Oximetry 98 03/18/20 21:49 Temperature 97.9 F 03/18/20 21:49 Pulse Rate 78 03/19/20 02:05 Respiratory Rate 18 03/19/20 02:05 Blood Pressure 154/98 H 03/19/20 02:05 Pulse Oximetry 98 03/19/20 02:05 MDM - Abdominal Pain Differentia
[2020-03-19] MEDS: FAMOTIDINE 20 MG/2 ML VIAL IV PUSH (00:13)
[2020-03-19] MEDS: ONDANSETRON INJ 4 MG/2 ML VIAL IV PUSH (00:13)
[2020-03-19] MEDS: SODIUM CHLORIDE 0.9% IV 1,000 ML 999 ML IV CONT (00:14)
[2020-03-19] MEDS: MORPHINE SULFATE 4 MG/ML INJ IV PUSH (00:35)
[2020-03-19 00:38] VITALS: BP 171/103; PULSE 68; RESP 18; O2SAT 100
[2020-03-19 02:05] VITALS: BP 154/98; PULSE 78; RESP 18; O2SAT 98
== END 2020-03-19 02:10 | disposition home or self-care (01) ==
PROVIDERS: Emergency Medicine Emergency Medical Services; Emergency Provider Emergency Medicine; PCP Internal Medicine
DX: K29.80 Duodenitis without bleeding (principal); N20.0 Calculus of kidney; K42.9 Umbilical hernia without obstruction or gangrene; K40.20 Bilateral inguinal hernia, without obstruction or gangrene, not specified as recurrent; Z87.442 Personal history of urinary calculi; K21.9 Gastro-esophageal reflux disease without esophagitis; I25.2 Old myocardial infarction; Z95.5 Presence of coronary angioplasty implant and graft; F17.210 Nicotine dependence, cigarettes, uncomplicated
CPT/HCPCS: 36415; 74177; 80053; 81001; 83690; 85025; 96361; 96374; 96375; 99284; J2270; J2405; J7030; Q9967

== ENCOUNTER 2020-06-13 15:05 | Inpatient (IN) | payer OTHER, SELFPAY ==
[2020-06-13] VITALS (18 sets, daily range): BP systolic 113–128; BP diastolic 64–94; PULSE 64–105; RESP 16–21; TEMP 36.2–37.1; O2SAT 93–100; BMI 23.6; BMI 24.7
--- NOTE | ~2020-06-13 | MR_ITS ---
EXAMINATION: MR brain/brain stem wo/w con EXAM DATE: 06/14/2020 13:14 INDICATION: Brain mass . Abnormal head CT. TECHNIQUE: Magnetic resonance imaging (MRI) of the brain/brain stem obtained without contrast. Sagit chanel T1, axial diffusion, gradient echo (T2*), T1, T2, FLAIR sequences obtained. Patient was then inj ected with 15 cc intravenous Multihance contrast. Axial and coronal postcontrast T1 weighted sequence s obtained. There is no prior study for comparison. FINDINGS: Multicystic mass centered in the medial temporal lobe and uncus measuring 2.3 cm. No defini te enhancement. No other brain lesions identified. 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 No findings to suggest herpes encephalitis. There are no areas of restricted diffusion to suggest acute infarction. There is no acute hemorrhage seen on the T2*, a hemosiderin sensitive sequence. The ventricles are normal in size. There are no extra-axial collections. Flow voids are seen in the cerebral arteries on the T2-weighted sequences consistent with their expected patency. The orbits are unremarkable. Soft tissue is unremarkable. 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 Reviewed, dictated and finalized at location B. 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
--- NOTE | ~2020-06-13 | CT_ITS ---
EXAMINATION: CT brain wo con DATE: 06/13/2020 16:48 INDICATION: Head injury. TECHNIQUE: Computed tomography (CT) of the head was performed without intravenous contrast. The mA wa s adjusted according to patient size. Iterative reconstruction technique was employed. The dose-lengt h product was 605.33 mGy-cm. COMPARISON: None FINDINGS: There is a 2.3 cm low-attenuation mass in medial right temporal lobe with involvement of th e uncus. There is no acute intracranial hemorrhage. The ventricles are normal in size. There is mild mucosal thickening in the ethmoid sinuses. The orbits are normal. The mastoid air cells are normal. IMPRESSION: 1. 2.3 cm low-attenuation mass in medial right temporal lobe with involvement of the uncus. The diffe rential diagnosis includes low-grade glioma and HSV encephalitis. Contusion or acute ischemic infarct is less likely given the distribution. Brain MRI without and with contrast is recommended. Reviewed, dictated and finalized at location A. H BALE HEADER IMPRESSION: 1. 2.3 cm low-attenuation mass in medial right temporal lobe with involvement o f the uncus. The differential diagnosis includes low-grade glioma and HSV encep halitis. Contusion or acute ischemic infarct is less likely given the distribut ion. Brain MRI without and with contrast is recommended.
--- NOTE | ~2020-06-13 | CT_ITS ---
EXAMINATION: CT chest abdomen pelvis w con DATE: 06/13/2020 16:48 INDICATION: Chest and abdominal injury. TECHNIQUE: Computed tomography (CT) of the chest, abdomen, and pelvis was performed with 100 mL Omnip aque 350 intravenous contrast. Automated exposure control and iterative reconstruction technique were employed. The dose-length product was 1037.66 mGy-cm. COMPARISON: CT abdomen and pelvis 03/19/2020 FINDINGS: CHEST CT: The visualized portions of the lung bases demonstrate mild scarring in paraspinal right lower lobe. T here is minimal atelectasis bilaterally. No pleural effusion. The heart size is normal. No pericardia l effusion. There are coronary artery calcifications. There is mild thoracic spondylosis. ABDOMEN/PELVIS CT: There is periportal edema in the liver. The gallbladder and spleen are normal. There is an ulcer of t he first portion the duodenum. The pancreas, adrenal glands, and left kidney are normal. There is a 4 mm stone in right kidney. There is a 4 mm cyst in right kidney. There are small bilateral inguinal h ernias containing fat. There is an umbilical hernia containing fat. There are no dilated loops of bow el. The appendix is normal. There are no pathologically enlarged lymph nodes. There is no free intrap eritoneal fluid. There is mild lumbar spondylosis. IMPRESSION: 1. Ulcer of the first portion of the duodenum. Reviewed, dictated and finalized at location A. EL WRAPPER
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
[2020-06-13 15:56] LABS: Alanine Aminotransferase 18 U/L (4-50); Albumin Level 3.6 g/dL (3.5-5.1); Alkaline Phosphatase 55 U/L (38-126); Anion Gap 8 mmol/L (8-16); Aspartate Amino Transferase 40 U/L (17-59); Bilirubin,Total 0.3 mg/dL (0.2-1.3); Blood Urea Nitrogen 20 mg/dL (9-20); Calcium 8.5 mg/dL (8.4-10.2); Carbon Dioxide 27 mmol/L (22-30); Chloride 98 mmol/L (98-107); Estimated CRCL calculation 115 ml/min; Estimated Glomerular Filt Rate > 60; Glucose 122 mg/dL (75-110); Lipase 90 U/L (23-300); Potassium 4.4 mmol/L (3.4-5.0); Sodium 133 mmol/L (137-145)
[2020-06-13] MEDS: SODIUM CHLORIDE 0.9% IV 1,000 ML 999 ML IV CONT (15:56)
[2020-06-13] MEDS: PANTOPRAZOLE SODIUM IV 40 MG VIAL IV PUSH (15:56)
--- NOTE | 2020-06-13 15:59 | PC.NURSE ---
Patient attempted to give urine sample at this time without success, will attempt again after CT scans
[2020-06-13 17:20] LABS: Basophils Percent Auto 0.4 % (0.2-1.2); Eosinophils Percent Auto 0.4 % (0-4.4); Immature Granulocyte Absolute 0.06 K/mm3 (0.00-0.031); Immature Granulocyte Percent A 0.6 % (0-0.5); Lymphocytes Absolute Auto 2.66 K/mm3 (0.9-3.2); Lymphocytes Percent Auto 25.4 % (18.3-44.2); Mean Corpuscular HGB Conc 31.5 g/dl (32-36); Mean Corpuscular Hemoglobin 26.5 pg (26-34); Mean Corpuscular Volume 84.1 fl (80-100); Mean Platelet Volume 9.5 fl (7.4-10.4); Monocytes Absolute Auto 0.9 K/mm3 (0.1-0.6); Monocytes Percent Auto 8.3 % (2.6-8.5); Neutrophils Absolute Auto 6.8 K/mm3 (1.3-6.7); Neutrophils Percent Auto 64.9 % (45.5-73.1); Platelet Count Result 396 k/mm3 (150-375); Red Blood Count 1.32 M/mm3 (4.6-6.20); Red Cell Distribution Width 14.6 % (11.5-14.5); White Blood Count 10.5 K/mm3 (4.5-10.0)
[2020-06-13 17:30] LABS: Hematocrit 11.1 % (42.0-52.0); Hemoglobin 3.5 g/dL (14.0-18.0)
[2020-06-13 18:08] LABS: Add Urine Microscopic? NO; Appearance Urine Clear (Clear); Bacteria Urine Trace /hpf; Bilirubin Urine Negative (Negative); Blood Urine Negative (Negative); Color Urine Yellow (Yellow); Glucose Urine UA Negative (Negative); Ketones Urine Negative (Negative); Leukocyte Esterase Ur Negative LEU/UL (Negative); Mucus Urine Rare /lpf; Nitrate Urine Negative (Negative); Protein Urine Negative (Negative); Urobilinogen Urine Negative mg/dL (<2.0); WBC Urine 0-3 /hpf
[2020-06-13 18:10] LABS: Specific Grav Ur 1.038 (1.001-1.035)
[2020-06-13] MEDS: TUBING, BLOOD SET 1 EACH XX (18:34)
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
--- NOTE | 2020-06-13 20:14 | ADMGEN ---
This patient, Nain Hurley, was admitted to IMU Room 212-01 @ 1949 from the ED. Patient/family oriented to hospital policies and general routines including ID bracelet, bed and alarms, visiting hours, pain management, procedures, bathroom and other care routines, personal items, smoking policy, room service/diet, and visiting hours. Information on how to activate the Rapid Response Team has been discussed. Patient/Family are encouraged to report perceived risks to care and to ask questions if they do not understand what they are told or what they should do.
[2020-06-13] MEDS: ONDANSETRON INJ 4 MG/2 ML VIAL IV PUSH (23:40)
[2020-06-14] VITALS (25 sets, daily range): BP systolic 110–130; BP diastolic 64–88; PULSE 62–95; RESP 14–20; TEMP 36.2–36.8; O2SAT 93–99; BMI 24.7
[2020-06-14] MEDS: SODIUM CHLORIDE 0.9% IV 250 ML 150 ML (01:53)
[2020-06-14] MEDS: TUBING, BLOOD PLUM PUMP TUBING 1 EACH XX (01:54)
[2020-06-14 02:41] LABS: Basophils Percent Auto 0.3 % (0.2-1.2); Eosinophils Absolute Auto 0.1 K/mm3 (0-0.3); Eosinophils Percent Auto 0.9 % (0-4.4); Immature Granulocyte Absolute 0.02 K/mm3 (0.00-0.031); Immature Granulocyte Percent A 0.2 % (0-0.5); Lymphocytes Absolute Auto 2.63 K/mm3 (0.9-3.2); Lymphocytes Percent Auto 29.7 % (18.3-44.2); Mean Corpuscular HGB Conc 33.2 g/dl (32-36); Mean Corpuscular Hemoglobin 29.2 pg (26-34); Mean Corpuscular Volume 88.1 fl (80-100); Mean Platelet Volume 9.5 fl (7.4-10.4); Monocytes Absolute Auto 0.6 K/mm3 (0.1-0.6); Monocytes Percent Auto 6.9 % (2.6-8.5); Neutrophils Absolute Auto 5.5 K/mm3 (1.3-6.7); Platelet Count Result 301 k/mm3 (150-375); Red Blood Count 2.19 M/mm3 (4.6-6.20); Red Cell Distribution Width 13.7 % (11.5-14.5); White Blood Count 8.9 K/mm3 (4.5-10.0)
[2020-06-14 02:51] LABS: Partial Thromboplastin Time 24.7 SECONDS (22.3-36.8); Prothrombin Time 13.4 Seconds (11.1-14.7)
[2020-06-14 02:52] LABS: Hematocrit 19.3 % (42.0-52.0); Hemoglobin 6.4 g/dL (14.0-18.0)
[2020-06-14 02:55] LABS: Alanine Aminotransferase 16 U/L (4-50); Albumin Level 2.9 g/dL (3.5-5.1); Alkaline Phosphatase 61 U/L (38-126); Anion Gap 2 mmol/L (8-16); Aspartate Amino Transferase 29 U/L (17-59); Bilirubin,Total 0.5 mg/dL (0.2-1.3); Blood Urea Nitrogen 17 mg/dL (9-20); Calcium 8.1 mg/dL (8.4-10.2); Carbon Dioxide 28 mmol/L (22-30); Chloride 105 mmol/L (98-107); Estimated CRCL calculation 98 ml/min; Estimated Glomerular Filt Rate > 60; Glucose 96 mg/dL (75-110); Magnesium 2.2 mg/dL (1.6-2.3); Potassium 4.4 mmol/L (3.4-5.0); Sodium 135 mmol/L (137-145)
[2020-06-14] MEDS: PANTOPRAZOLE SODIUM IV 40 MG VIAL IV PUSH ×2 (09:17→20:24)
[2020-06-14 11:46] LABS: Hematocrit 21.9 % (42.0-52.0); Hemoglobin 7.3 g/dL (14.0-18.0)
[2020-06-14] MEDS: SODIUM CHLORIDE 0.9% IV 1,000 ML 75 ML IV CONT (12:30)
--- NOTE | 2020-06-14 13:26 | WPDANESEPPF ---
Anes - Initial Pre Proc Eval Procedure: Operation Date: 06/14/20 15:00 Proposed Procedures p Esophagogastroduodenoscopy - Vipul Aguilar MD Date/Time: 06/14/20 13:26 Surgeon: Paco Amezcua MD Pre Op Diagnosis: Dark stools and weakness. Patient Data Age: 50 Gender: M Height: 1.75 m Weight: 76 kg Last Vital Signs Temp 36.8 C 06/14/20 12:00 Pulse 67 06/14/20 12:00 Resp 16 06/14/20 12:00 BP 121/77 06/14/20 12:00 Pulse Ox 97 06/14/20 12:00 Allergies Allergy/AdvReac Type Severity Reaction Status Date / Time No Known Allergies Allergy Mild Verified 06/13/20 15:22 Home Medications Medication Instructions Recorded Confirmed Type albuterol sulfate 90 mcg/actuation 1 inhalation INHALATION Q4H PRN 01/13/20 01/13/20 Rx aerosol inhaler #18 gm pantoprazole 40 mg tablet,delayed 40 mg PO BID #180 tablet 01/13/20 01/13/20 Rx release sucralfate 1 gram tablet 1 g PO ACHS #180 tablet 01/13/20 01/13/20 Rx tramadol 50 mg PO Q4H PRN #10 tablet 03/19/20 Rx Laboratory Tests 06/13/20 06/13/20 06/13/20 15:25 15:25 16:59 WBC 10.5 K/mm3 H K/mm3 (4.5-10.0) RBC 1.32 M/mm3 L M/mm3 (4.6-6.20) Hgb 3.5 g/dL L* D g/dL (14.0-18.0) Hct 11.1 % L* % (42.0-52.0) MCV 84.1 fl fl (80-100) MCH 26.5 pg pg (26-34) MCHC 31.5 g/dl L g/dl (32-36) RDW 14.6 % H % (11.5-14.5) Plt Count 396 k/mm3 H k/mm3 (150-375) MPV 9.5 fl fl (7.4-10.4) Immature Gran % (Auto) 0.6 % H % (0-0.5) Neut % (Auto) 64.9 % % (45.5-73.1) Lymph % (Auto) 25.4 % % (18.3-44.2) [place] % (Auto) 8.3 % % (2.6-8.5) Eos % (Auto) 0.4 % % (0-4.4) Baso % (Auto) 0.4 % % (0.2-1.2) Lymph # (Auto) 2.66 K/mm3 K/mm3 (0.9-3.2) [place] # (Auto) 0.9 K/mm3 H K/mm3 (0.1-0.6) Eos # (Auto) 0.0 K/mm3 K/mm3 (0-0.3) Baso # (Auto) 0.0 K/mm3 K/mm3 (0.0-0.1) Abs Immat Gran (auto) 0.06 K/mm3 H K/mm3 (0.00-0.031) Absolute Neuts (auto) 6.8 K/mm3 H K/mm3 (1.3-6.7) Absolute Nucleated RBC 0.0 K/mm3 K/mm3 (0.0-0.012) Nucleated RBC % 0.0 % % (0.0-0.2) PT INR APTT Sodium 133 mmol/L L mmol/L (137-145) Potassium 4.4 mmol/L mmol/L (3.4-5.0) Chloride 98 mmol/L mmol/L (98-107) Carbon Dioxide 27 mmol/L mmol/L (22-30) Anion Gap 8 mmol/L mmol/L (8-16) BUN 20 mg/dL mg/dL (9-20) Creatinine 0.70 mg/dL mg/dL (0.7-1.3) Estim Creat Clear Calc 115 ml/min ml/min Estimated GFR > 60 (59 - ) Glucose 122 mg/dL H mg/dL (75-110) Calcium 8.5 mg/dL mg/dL (8.4-10.2) Magnesium Total Bilirubin 0.3 mg/dL mg/dL (0.2-1.3) AST 40 U/L U/L (17-59) ALT 18 U/L U/L (4-50) Alkaline Phosphatase 55 U/L U/L (38-126) Total Protein 6.0 g/dL L g/dL (6.3-8.2) Albumin 3.6 g/dL g/dL (3.5-5.1) Lipase 90 U/L U/L (23-300) Urine Color Urine Appearance Urine pH Ur Specific [place] Urine Protein Urine Glucose (UA) Urine Ketones Ur Blood (Man) Urine Nitrate Urine Bilirubin Urine Urobilinogen Leukocyte Esterase Rfl Urine WBC Urine Bacteria Urine Mucus Blood Type O Positive Antibody Screen Negative Crossmatch See Detail 06/13/20 06/14/20 06/14/20 17:52 02:33 02:33 WBC 8.9 K/mm3 K/mm3 (4.5-10.0) RBC 2.19 M/mm3 L M/mm3 (4.6-6.20) Hgb 6.4 g/dL L* g/dL (14.0-18.0) Hct 19.3 % L* % (42.0-52.0) MCV 88.1 fl fl (
[2020-06-14] MEDS: LACTATED RINGERS 1,000 ML 150 ML IV CONT (13:57)
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
--- NOTE | 2020-06-14 16:23 | PM.IMPN ---
Progress Note: A&P Assessment and Plan (1) GI bleed: Code(s): K92.2 - Gastrointestinal hemorrhage, unspecified Status: Acute Assessment and Plan: GI consulted (2) Profound anemia: Code(s): D64.9 - Anemia, unspecified Status: Acute Assessment and Plan: SP 4 units of blood (3) Right temporal lobe mass: Code(s): G93.89 - Other specified disorders of brain Status: Acute Assessment and Plan: per CT and MRI head, neurology consulted, awaiting transfer to [facility], awaiting bed, continue care here meanwhile. (4) Peptic ulcer disease: Code(s): K27.9 - Peptic ulcer, site unspecified, unspecified as acute or chronic, without hemorrhage or perforation Status: Inactive Assessment and Plan: Untreated likley cause of GI bleed (5) Reflux esophagitis: Code(s): K21.00 - Gastro-esophageal reflux disease with esophagitis, without bleeding Status: Inactive (6) Coronary artery disease: Code(s): I25.10 - Atherosclerotic heart disease of [place] coronary artery without angina pectoris Status: Inactive (7) Tobacco abuse: Code(s): Z72.0 - Tobacco use Status: Chronic Subjective Date/time seen: 06/14/20 16:23 Interval history: Xavi is a 50-year-old male with coronary artery disease and history of stent in 2018, reflux esophagitis, and peptic ulcer disease presented to the emergency department earlier this afternoon with complaints of dark stools and weakness. He is known to the hospitalist service with an admission in December 2019 with a similar presentation. At that time and upper endoscopy per Dr. Aguilar demonstrated reflux esophagitis with linear ulcers and ulcers in the antrum and duodenal bulb. He was discharged with pantoprazole and sucralfate, and it seems like he completed a course of about 3 months of those medications. Pt is homeless and non compliant to medications. Describes headache and back pain, MRI is positive for glioma. Pt is sp 4 units of blood, seen by GI needs urgent endoscopy for likely bleeding DU. Review of Systems Review of Systems: All systems reviewed & are unremarkable except as noted in HPI and below ROS unobtainable: Yes other (back pain headaches ) Exam Const: General: in distress Orientation/consciousness: oriented to person Other: Chronically ill appearing thin unkempt man HENMT: Head: normal to inspection Resp: Effort & Inspection: no respiratory distress Auscultation: no rhonchi and no wheezes Cardio: Rate: regular rate Rhythm: regular rhythm GI: Inspection: normal to inspection GI Palp: No abdominal tenderness, No Guarding due to palpation present (GI) and No Hepatomegaly present Auscultation: normal bowel sounds Neuro: General: oriented to person Objective Data Vital Signs Vital Signs: Vital Signs - 24 hr 06/13/20 16:24 06/13/20 17:20 06/13/20 18:14 Temperature 37.1 C Pulse Rate 105 H 97 97 Respiratory Rate 20 18 16 Blood Pressure 127/94 H 128/75 121/71 Pulse Oximetry 99 100 98 06/13/20 18:30 06/13/20 18:52 06/13/20 19:27 Temperature 37.1 C 36.5 C Pulse Rate 91 88 93 Respiratory Rate 21 H 18 18 Blood Pressure 116/78 124/86 127/86 Pulse Oximetry 100 100 100 06/13/20 19:31 06/13/20 19:49 06/13/20 20:00 Temperature 36.5 C 36.6 C Pulse Rate 87 95 90 Respiratory Rate 18 20 Blood Pressure 120/83 119/74 Pulse Oximetry 100 97 100 06/13/20 20:02 06/13/20 20:19 06/13/20 21:19 Temperature 36.2 C L 36.3 C L 36.6 C Pulse Rate 83 85 64 Respiratory Rate 20 20 18 Blood Pressure 116/74 116/74 122/81 Pulse Oximetry 100 100 97 06/13/20 22:00 06/13/20 22:19 06/13/20 23:11 Temperature 36.6 C 36.6 C Pulse Rate 77 78 88 Respiratory Rate 20 16 Blood Pressure 119/76 114/80 Pulse Oximetry 97 98 06/13/20 23:59 06/14/20 00:00 06/14/20 01:17 Temperature 36.6 C 36.4 C Pulse Rate 95 95 90 Respiratory Rate 20 20 16 Blood Pressure 120/83 120/83 12
[2020-06-14] MEDS: SUCRALFATE SUSP 100 MG/ML 10 ML UDC 1000 MG PO ×2 (17:07→20:24)
[2020-06-15] VITALS: BP 119/68; PULSE 95; RESP 20; TEMP 36.7; O2SAT 97
--- NOTE | 2020-06-15 00:02 | PC.NURSE ---
PATIENT DISCHARGED VIA [facility] AT [address] TO [facility], ROOM 609. REPORT WAS CALLED TO KENZIE RIOS. PATIENT WAS SENT WITH ALL APPROPRIATE PAPERWORK AND HIS BELONGINGS WERE ALL CHECKED AND SENT WITH EMS. VITAL SIGNS STABLE.
--- NOTE | 2020-06-15 08:48 | PM.DS ---
DS: Admitting Diagnosis Admitting Diagnosis Admitting Diagnosis: Dark stools and weakness. Discharge date 06/14/2020 DS: Summary Time Spent with Patient Time attestation: Total time spent providing and/or coordinating discharge services: DS: Data Data Completed and Pending Pending studies at discharge: Pending at discharge 06/14/20 14:53 Surgical [PTH] Routine Labs on day of discharge: Labs from last 24 hours 06/14/20 06/13/20 11:27 15:25 Hgb 7.3 L Hct 21.9 L Crossmatch See Detail Discharge Plan Discharge Consulting providers: Vipul Aguilar Riaz Patient Disposition: Acute Care Hospital Patient Instructions: How to Stop Smoking (DC), How to Stop Smoking (GEN), How to Quit Using Smokeless Tobacco (DC) Discharge Medications: No Action pantoprazole [Protonix] 40 mg tablet,delayed release (DR/EC) 40 mg PO BID Qty: 180 RF: 0 sucralfate 1 gram tablet 1 g PO ACHS Qty: 180 RF: 0 albuterol sulfate 90 mcg/actuation HFA aerosol inhaler 1 inhalation INHALATION Q4H PRN (Reason: shortness of breath or wheezing) Qty: 18 RF: 0 tramadol 50 mg tablet 50 mg PO Q4H PRN (Reason: pain) Qty: 10 RF: 0 Date of admission: 06/13/20 18:39 Primary Care Provider: Dakotah Morales Admitting Provider: Corby Amezcua Attending physician on admission: Corby Amezcua Condition: Stable Quality VTE Prophylaxis VTE prophylaxis: mechanical ordered
--- NOTE | 2020-06-15 16:59 | PM.TDS ---
Transfer Discharge Sum: Prov Provider Date of admission: 06/13/20 18:39 DATE OF TRANSFER 06/14/2020 Primary care physician: Dakotah Morales MD Admitting clinician: Paco Amezcua MD Consults: 06/13/20 18:42 Consult to Physician Routine Comment: Consulting Provider: Vipul Aguilar Reason for consultation: Duodenal ulcer, anemia Has provider been notified: Yes 06/14/20 18:10 Consult to Physician Routine Comment: Consulting Provider: Parviz Delaney call out clerk/MD group to consult: NEUROLOGY Reason for consultation: GLIOMA IN BRAIN Has provider been notified: Yes DS: Admitting Diagnosis Admitting Diagnosis Admitting Diagnosis: Anemia, Brain Mass Transfer Discharge Sum: Med Medications Active and Home Medications: Home Medications albuterol sulfate 90 mcg/actuation aerosol inhaler 1 inhalation INHALATION Q4H PRN #18 gm 01/13/20 [Rx Confirmed 01/13/20] pantoprazole 40 mg tablet,delayed release 40 mg PO BID #180 tablet 01/13/20 [Rx Confirmed 01/13/20] sucralfate 1 gram tablet 1 g PO ACHS #180 tablet 01/13/20 [Rx Confirmed 01/13/20] tramadol 50 mg PO Q4H PRN #10 tablet 03/19/20 [Rx] Transfer Discharge Sum: Hosp Hospital Course Hospital course: Xavi is a 50-year-old male with coronary artery disease and history of stent in 2017, reflux esophagitis, and peptic ulcer disease presented to the emergency department earlier this afternoon with complaints of dark stools and weakness. He is known to the hospitalist service with an admission in December 2019 with a similar presentation. At that time and upper endoscopy per Dr. Aguilar demonstrated reflux esophagitis with linear ulcers and ulcers in the antrum and duodenal bulb. He was discharged with pantoprazole and sucralfate, and it seems like he completed a course of about 3 months of those medications. Pt is homeless and non compliant to medications. Describes headache and back pain, MRI is positive for glioma. Pt is sp 4 units of blood, seen by GI needs urgent endoscopy for likely bleeding DU. Pt is accepted to [facility] for neurosurgery, Incidental right temporal lobe mass involving the uncus. CT brain and MRI brain were both done in [facility]. Time Spent with Patient Time attestation: Total time spent providing and/or coordinating transfer services:40 minutes on day of discharge. Exam Const: General: in distress Orientation/consciousness: oriented to person HENMT: Head: normal to inspection Resp: Effort & Inspection: no respiratory distress Auscultation: no rhonchi and no wheezes Cardio: Rate: regular rate Rhythm: regular rhythm GI: Inspection: normal to inspection Auscultation: normal bowel sounds Neuro: General: oriented to person DS: Data Data Completed and Pending Pending studies at discharge: Pending at discharge 06/14/20 14:53 Surgical [PTH] Routine
== END 2020-06-15 | disposition short-term general hospital (02) | DRG 241 ==
LOC: ANHED 18:33 → ANHIMU 20:46
PROVIDERS: Internal Medicine Gastroenterology; Physician Assistant; Admitting Provider Internal Medicine; Emergency Provider Emergency Medicine; PCP Internal Medicine; Visit Provider Family Medicine
PROC: 0DJ08ZZ Inspection of Upper Intestinal Tract, Via Natural or Artificial Opening Endoscopic (ICD-10-PCS; CPT 43235; principal; 2020-06-14 15:00)
DX: K26.4 Chronic or unspecified duodenal ulcer with hemorrhage (principal); D62 Acute posthemorrhagic anemia; K22.11 Ulcer of esophagus with bleeding; K25.0 Acute gastric ulcer with hemorrhage; K25.9 Gastric ulcer, unspecified as acute or chronic, without hemorrhage or perforation; K21.00 Gastro-esophageal reflux disease with esophagitis, without bleeding; G93.89 Other specified disorders of brain; I25.10 Atherosclerotic heart disease of native coronary artery without angina pectoris; F17.210 Nicotine dependence, cigarettes, uncomplicated; F17.220 Nicotine dependence, chewing tobacco, uncomplicated; Z91.14 Patient's other noncompliance with medication regimen; Z59.0 Homelessness; I25.2 Old myocardial infarction; Z95.5 Presence of coronary angioplasty implant and graft; Z87.442 Personal history of urinary calculi
CPT/HCPCS: 36415; 36430; 70450; 70553; 71260; 74177; 80053; 81003; 83690; 83735; 85014; 85018; 85025; 85610; 85730; 86850; 86900; 86901; 86923; 87081; 88305; 88342; 96361; 96374; 99285; A9270; A9577; C9113; J0131; J2405; J2704; J7030; J7050; J7120; P9016; Q9967

== ENCOUNTER 2020-06-18 18:19 | Observation (INO) | payer OTHER, SELFPAY ==
--- NOTE | ~2020-06-18 | US_ITS ---
EXAMINATION: US venous doppler UE RT DATE: 06/19/2020 07:59 INDICATION: Right upper limb pain. TECHNIQUE: Grayscale ultrasound images without and with compression and Doppler ultrasound images of the right upper extremity veins were obtained. COMPARISON: None. FINDINGS: The visualized portions of the right internal jugular vein, subclavian vein, axillary vein, brachial veins, basilic vein, radial vein, and ulnar vein are patent. There is thrombus in right cephalic vein . IMPRESSION: 1. No deep venous thrombosis. 2. Thrombus in right cephalic vein, which is a superficial vein. Reviewed, dictated and finalized at location A. OBJECTS REPAIRER
[2020-06-18 18:35] VITALS: BP 104/52; PULSE 87; RESP 17; TEMP 36.8; O2SAT 99
--- NOTE | 2020-06-18 19:06 | ED.UPPEXIN ---
HPI - Extremity Injury (Upper) General Chief Complaint: Extremity Injury, Upper Stated Complaint: arm pain & numbness after iv Time Seen by Provider: 06/18/20 19:06 Source: patient Mode of arrival: ambulatory Limitations: no limitations History of Present Illness HPI narrative: Patient is a 50 yo male with a hx of peptic ulcer disease, GI bleed, brain mass, who presents to the ER for evaluation of right upper extremity swelling and pain. Patient states he was recently discharged from [facility] approximately 2 days ago, had an IV that was placed in his right upper extremity/antecubital fossa at this hospital prior to transfer, since that has been removed, patient has had pain and swelling as well as redness at the site. He reports right upper extremity swelling that extends his to his hand. Patient denies fever. He denies numbness. Pain is dull, aching in nature. He has been taking Tylenol for this. Related Data Home Medications Medication Instructions Recorded Confirmed atorvastatin 06/18/20 ondansetron HCl 06/18/20 Allergies Allergy/AdvReac Type Severity Reaction Status Date / Time No Known Allergies Allergy Mild Verified 06/18/20 18:45 Review of Systems Review of Systems: Narrative: CONSTITUTIONAL: Denies fever, chills, or sweats. ENT: Denies rhinorrhea, congestion CARDIOVASCULAR: Denies chest pain, palpitations, or edema. RESPIRATORY: Denies cough or dyspnea. GASTROINTESTINAL: Denies abdominal pain, nausea, vomiting, or diarrhea. GENITOURINARY: Denies dysuria or hematuria. SKIN: Reports right arm swelling and redness MUSCULOSKELETAL: Denies back pain, reports right upper extremity arm pain, right arm myalgia NEUROLOGIC: Denies headache, numbness, or weakness. [facility] Past Medical History Medical History Coronary artery disease With history of [place] in 2018 status post stent x2, done at [facility]. Gastroesophageal reflux disease Kidney stones Narcolepsy Peptic ulcer disease On EGD in December [address] Aguilar. Reflux esophagitis On EGD in December [address] Aguilar. Tobacco abuse Surgical History Surgical History History of heart artery stent (~2018) X2. Family History Family History Mother No problems noted. Father Heart attack COPD (chronic obstructive pulmonary disease) Hypertension Social History Social History Social History: The patient is single and is currently living in a local motel. 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 He began smoking at age 15 and smokes about a half a pack of cigarettes per day and also chews tobacco. He drank heavily but quit in 2012 when he began having problems with his stomach. Previous marijuana use. He designates his mother, Yolanda Hurley, as his surrogate decision maker and he wishes to be a full code. Smoking packs per day: 0.5 Smoking cigarettes per day: 10.0 Years smoked: 35 Smoking pack-years: 17.50 Smoking status: Current every day smoker Tobacco type: cigarettes Smokeless tobacco user: chewing tobacco Spiritual care concerns: No Exam Narrative: Exam Narrative: GENERAL: Awake, alert, conversant HEAD: Normocephalic, atraumatic. EYES: PERRLA and EOMI. ENT: Nares clear, no rhinorrhea or epistaxis. Mucous membranes moist. NECK: Supple. CHEST: No respiratory distress, breathing even and non labored HEART: Regular rate, sinus rhythm ABDOMEN:Non distended, non tender EXTREMITIES: Swelling, edema, erythema at the right upper extremity, with indurated area right AC, tenderness, no fluctuance, edema extending into the right hand. Radial pulse 2+. Intact sensation m/u/r nerve distribution. SKIN: Warm, dry, no rash. NEURO:No focal deficits. Alert and oriented x3
[2020-06-18 20:54] LABS: Basophils Absolute Auto 0.1 K/mm3 (0.0-0.1); Basophils Percent Auto 0.5 % (0.2-1.2); Eosinophils Absolute Auto 0.3 K/mm3 (0-0.3); Eosinophils Percent Auto 3.3 % (0-4.4); Hematocrit 25.2 % (42.0-52.0); Immature Granulocyte Absolute 0.08 K/mm3 (0.00-0.031); Immature Granulocyte Percent A 0.9 % (0-0.5); Lymphocytes Absolute Auto 2.45 K/mm3 (0.9-3.2); Lymphocytes Percent Auto 26.7 % (18.3-44.2); Mean Corpuscular HGB Conc 31.7 g/dl (32-36); Mean Corpuscular Hemoglobin 29.2 pg (26-34); Mean Platelet Volume 9.9 fl (7.4-10.4); Monocytes Percent Auto 11.1 % (2.6-8.5); Neutrophils Absolute Auto 5.3 K/mm3 (1.3-6.7); Neutrophils Percent Auto 57.5 % (45.5-73.1); Nucleated Red Blood Cells Perc 0.2 % (0.0-0.2); Platelet Count Result 375 k/mm3 (150-375); Red Blood Count 2.74 M/mm3 (4.6-6.20); Red Cell Distribution Width 14.5 % (11.5-14.5); White Blood Count 9.2 K/mm3 (4.5-10.0)
[2020-06-18 21:03] LABS: INR 0.9; Prothrombin Time 12.3 Seconds (11.1-14.7)
[2020-06-18 21:04] LABS: Partial Thromboplastin Time 27.5 SECONDS (22.3-36.8)
[2020-06-18 21:06] LABS: Anion Gap 6 mmol/L (8-16); Blood Urea Nitrogen 13 mg/dL (9-20); Calcium 8.4 mg/dL (8.4-10.2); Carbon Dioxide 30 mmol/L (22-30); Chloride 101 mmol/L (98-107); Creatine Kinase 39 U/L (55-170); D Dimer 1.64 ug/mL (<0.48); Estimated CRCL calculation 115 ml/min; Estimated Glomerular Filt Rate > 60; Glucose 107 mg/dL (75-110); Potassium 4.6 mmol/L (3.4-5.0); Sodium 137 mmol/L (137-145)
[2020-06-18 21:08] LABS: CRP 2.6 mg/dL (<1.0)
[2020-06-18 21:22] LABS: Erythrocyte Sedimentation Rate > 140 mm/hr (0-20)
[2020-06-18] MEDS: oxyCODONE/ACETAMINOPHEN (*CRX) 5-325 MG TABLET 1 TABLET PO (21:48)
[2020-06-18] MEDS: ONDANSETRON HCL ODT 4 MG TABLET PO (21:48)
[2020-06-18 21:51] VITALS: BP 115/62; PULSE 90; RESP 18; TEMP 36.6; O2SAT 97
--- NOTE | 2020-06-18 22:57 | PM.IMHP ---
H&P: HPI History of Present Illness Date/Time: 06/18/20 22:57 Chief complaint: Right upper extremity pain, edema, possible DVT Narrative: This is a 50 year old male with known history of PUD, GERD, brain mass who was just recently admitted for a GI bleed and who was just discharged from [facility] 2 days ago after he was evaluated for his brain mass that he was told is benign. Since the patient was discharged two days ago he has had increased redness, swelling, and pain of his right upper arm. The patient had an IV in his right antecubital fossa during his last hospitalization at [facility]. The patient denies any fevers, chills, shortness of breath, chest pain, cough, abdominal pain, vomiting, diarrhea, LE swelling or pain. He reports that he continues to have black stools. The patient was evaluated in the ER although RUE ultrasound was not obtainable at this hour. We have been asked to admit the patient to the hospital to evaluate his RUE redness and swelling for possible DVT. The patient continues to take his carafate and protonix. No other complaints at this time. Review of Systems Review of Systems: All systems reviewed & are unremarkable except as noted in HPI and below PMFSH Past Medical History Medical History Acute blood loss anemia Coronary artery disease With history of [place] in 2018 status post stent x2, done at [facility]. Duodenal ulcer Gastroesophageal reflux disease Kidney stones Narcolepsy Peptic ulcer disease On EGD in December [address] Aguilar. Reflux esophagitis On EGD in December [address] Aguilar. Tobacco abuse Surgical History Surgical History History of heart artery stent (~2018) X2. Family History Family History Mother No problems noted. Father Heart attack COPD (chronic obstructive pulmonary disease) Hypertension Social History Social History Social History: The patient is single and is currently living in a local motel. 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 He began smoking at age 15 and smokes about a half a pack of cigarettes per day and also chews tobacco. He drank heavily but quit in 2012 when he began having problems with his stomach. Previous marijuana use. He designates his mother, Yolanda Hurley, as his surrogate decision maker and he wishes to be a full code. Smoking packs per day: 0.5 Smoking cigarettes per day: 10.0 Years smoked: 35 Smoking pack-years: 17.50 Smoking status: Current every day smoker Tobacco type: cigarettes Smokeless tobacco user: chewing tobacco Alcohol intake: former Substance use: former Substance use type: does not use Gender identity (if verbalized by the patient): Male Spiritual care concerns: No Meds Home Medications and Allergies Home Medications Medication Instructions Recorded Confirmed Type pantoprazole 40 mg tablet,delayed 40 mg PO BID #180 tablet 01/13/20 06/18/20 Rx release atorvastatin 40 mg PO DAILY 06/18/20 06/18/20 History ondansetron HCl 4 mg PO Q6H PRN 06/18/20 06/18/20 History sucralfate 10 ml PO QID 06/18/20 06/18/20 History Allergies Allergy/AdvReac Type Severity Reaction Status Date / Time No Known Allergies Allergy Mild Verified 06/18/20 23:33 Vital Signs Vital Signs - 24 hr 06/18/20 18:35 06/18/20 21:51 Temperature 36.8 C 36.6 C Pulse Rate 87 90 Respiratory Rate 17 18 Blood Pressure 104/52 L 115/62 Pulse Oximetry 99 97 Exam Const: General: cooperative, alert and awake Nutritional Appearance: well nourished Orientation/consciousness: patient oriented x3 HENMT: Head: normal to inspection General nose exam: Normal external nose present Face and sinus: normal facial exam Mouth: Yes Normal oral and palatal mucosa present and Yes orop
--- NOTE | 2020-06-18 23:19 | ADMGEN ---
This patient, Nain Hurley, was admitted to Medical Room 245-. Patient/family oriented to hospital policies and general routines including ID bracelet, bed and alarms, visiting hours, pain management, procedures, bathroom and other care routines, personal items, smoking policy, room service/diet, and visiting hours. Information on how to activate the Rapid Response Team has been discussed. Patient/Family are encouraged to report perceived risks to care and to ask questions if they do not understand what they are told or what they should do.
[2020-06-18 23:23] VITALS: BMI 25.8
[2020-06-18 23:24] VITALS: BP 100/68; PULSE 86; RESP 20; TEMP 36.4; O2SAT 96
[2020-06-19] VITALS (8 sets, daily range): BP systolic 98–110; BP diastolic 47–57; PULSE 78–84; RESP 14–20; TEMP 36.4–37; O2SAT 97–100
[2020-06-19 02:01] LABS: Basophils Absolute Auto 0.1 K/mm3 (0.0-0.1); Basophils Percent Auto 0.6 % (0.2-1.2); Eosinophils Absolute Auto 0.3 K/mm3 (0-0.3); Eosinophils Percent Auto 4.3 % (0-4.4); Hematocrit 21.8 % (42.0-52.0); Immature Granulocyte Absolute 0.06 K/mm3 (0.00-0.031); Immature Granulocyte Percent A 0.8 % (0-0.5); Lymphocytes Absolute Auto 2.48 K/mm3 (0.9-3.2); Mean Corpuscular HGB Conc 31.7 g/dl (32-36); Mean Corpuscular Hemoglobin 29.2 pg (26-34); Mean Corpuscular Volume 92.4 fl (80-100); Mean Platelet Volume 10.2 fl (7.4-10.4); Monocytes Absolute Auto 1.1 K/mm3 (0.1-0.6); Monocytes Percent Auto 13.9 % (2.6-8.5); Neutrophils Percent Auto 49.4 % (45.5-73.1); Platelet Count Result 315 k/mm3 (150-375); Red Blood Count 2.36 M/mm3 (4.6-6.20); Red Cell Distribution Width 14.6 % (11.5-14.5)
[2020-06-19 02:13] LABS: Anion Gap 4 mmol/L (8-16); Blood Urea Nitrogen 13 mg/dL (9-20); Calcium 7.9 mg/dL (8.4-10.2); Carbon Dioxide 30 mmol/L (22-30); Chloride 103 mmol/L (98-107); Estimated CRCL calculation 115 ml/min; Estimated Glomerular Filt Rate > 60; Glucose 104 mg/dL (75-110); Sodium 137 mmol/L (137-145)
[2020-06-19 02:31] LABS: Hemoglobin 6.9 g/dL (14.0-18.0)
[2020-06-19] MEDS: ATORVASTATIN 40 MG TABLET PO ×2 (02:32→20:02)
[2020-06-19] MEDS: SODIUM CHLORIDE 0.9% IV 250 ML 30 ML IV CONT (05:00)
[2020-06-19] MEDS: PANTOPRAZOLE 40 MG TABLET PO ×2 (10:30→16:28)
[2020-06-19] MEDS: SUCRALFATE SUSP 100 MG/ML 10 ML UDC 1000 MG PO ×3 (10:31→20:02)
[2020-06-19] MEDS: HYDROcodone/acetaminophen (*CRX) 5-325 MG TABLET 1 TAB PO ×2 (10:33→19:59)
--- NOTE | 2020-06-19 11:26 | PM.IMPN ---
Progress Note: A&P Assessment and Plan (1) Acute GI bleeding: Code(s): K92.2 - Gastrointestinal hemorrhage, unspecified Status: Acute Assessment and Plan: The patient has been admitted for observation. He has been transfused 1 u pRBC per e commerce architect given Hgb 6.9 overnight. No reports of melena today. GI has been consulted and appreciate recommendations Trend H/H transfuse prn. Continue PPI and carafate therapy Monitor (2) Superficial thrombophlebitis of arm: Qualifiers: Laterality: right Qualified Code(s): I80.8 - Phlebitis and thrombophlebitis of other sites Code(s): I80.8 - Phlebitis and thrombophlebitis of other sites Status: Acute Assessment and Plan: Venous doppler RUE negative for DVT; superficial thrombus noted Warm compresses (3) Normocytic anemia: Code(s): D64.9 - Anemia, unspecified Status: Acute Assessment and Plan: Hgb 6.9; likely secondary to an acute GI bleed. Continue treatment with PPI and carafate Please see above a/p Subjective Date/time seen: 06/19/20 11:26 Interval history: Patient is a 50 yo M with history of CAD, GERD, PUD, recent GI bleed who is seen in follow up for acute GI bleeding/anemia and DVT in RE r/o. Patient states he feels okay today. Pain is about 7/10 in his RUE. He notes warmth and swelling in arm. He also has pressure in epigastric region. Notes right lower leg pain he thinks is a muscle strain. He reports black stools yesterday but no BMs yet today. No other complaints at the moment. Denies f/c/s, current dizziness, lightheadedness, cp/palpitations, sob/cough, n/v/d/c, abd pain, hematuria, cloudy urine, calf pain/swelling. Review of Systems Review of Systems: All systems reviewed & are unremarkable except as noted in HPI and below Exam Narrative: Exam Narrative: General: Patient resting supine in bed in no acute distress. HEENT: Normocephalic, EOMI, oral mucosa moist. Cardiovascular: Rate and rhythm are regular. No notable murmur, rub, or gallop. Respiratory: Lungs clear to auscultation all bran. Non-labored breathing. Abdomen: Soft, non-tender, non-distended, bowel sounds present. Extremities: Peripheral pulses intact. No edema. NTTP b/l calves. TTP on right, distal anterior aspect of chung. Mild pain with dorsiflexion Neuro: No focal neurological deficits. Speech is clear. Objective Data Vital Signs Vital Signs: Last Vital Signs Temp 98.4 F 06/19/20 08:23 Pulse 84 06/19/20 08:23 Resp 17 06/19/20 08:23 BP 109/57 L 06/19/20 08:23 Pulse Ox 97 06/19/20 08:23 Intake/Output Intake/Output: Intake & Output 06/16/20 06/17/20 06/18/20 06/19/20 23:59 23:59 23:59 23:59 Intake Total 677 Balance 677 Meds/Results Medications: Active Medications Generic Name Dose Route Start Last Admin Trade Name Freq PRN Reason Stop Dose Admin Acetaminophen 650 mg 06/19/20 09:10 Acetaminophen 325 Mg Tablet PO Q6H PRN Pain Rated 5 or Less Hydrocodone Bitart/Acetaminophen 1 tab 06/19/20 09:10 06/19/20 10:33 Hydrocodone/Acetaminophen (*Crx) 5-325 Mg Tablet PO 1 tab Q4H PRN Administration Pain Rated 6 or Greater Atorvastatin Calcium 40 mg 06/19/20 01:50 06/19/20 02:32 Atorvastatin 40 Mg Tablet PO 40 mg HS CAROL Administration Pantoprazole Sodium 40 mg 06/19/20 09:00 06/19/20 10:30 Pantoprazole 40 Mg Tablet PO 40 mg BID CAROL Administration Sucralfate 1,000 mg 06/19/20 08:00 06/19/20 10:31 Sucralfate Susp 100 Mg/Ml 10 Ml Udc PO 1,000 mg 0800,1100,1600,2100 CAROL Administration Radiology Results: ITS Impressions Venous Doppler Study 06/19/20 08:00 IMPRESSION: 1. No deep venous thrombosis. 2. Thrombus in right cephalic vein, which is a superficial vein. Labs Labs: Laboratory Tests 06/19/20 0
[2020-06-19 12:40] LABS: Hematocrit 24.6 % (42.0-52.0); Hemoglobin 7.8 g/dL (14.0-18.0)
--- NOTE | 2020-06-19 12:43 | WPDGICN ---
Assessment and Plan Assessment and plan (1) GI (gastrointestinal bleed): Qualifiers: GI bleed type/associated pathology: duodenal ulcer Qualified Code(s): K26.4 - Chronic or unspecified duodenal ulcer with hemorrhage Code(s): K92.2 - Gastrointestinal hemorrhage, unspecified Status: Acute Assessment and Plan: recent egd showed large DU, will continue with ppi bid he just got one unit prbc, continue to monitor ok to advance diet as tolerated no need to repeat EGD unless overt gib again EGD in 2 months to assess for healing, also we can do a colonoscopy same time since he never had one (2) Duodenal ulcer: Code(s): K26.9 - Duodenal ulcer, unspecified as acute or chronic, without hemorrhage or perforation Status: Acute Assessment and Plan: will need long term care social worker ppi bid and continue with carafate, avoid nsaids (3) Acute blood loss anemia: Code(s): D62 - Acute posthemorrhagic anemia Status: Acute (4) Superficial thrombophlebitis of arm: Qualifiers: Laterality: right Qualified Code(s): I80.8 - Phlebitis and thrombophlebitis of other sites Code(s): I80.8 - Phlebitis and thrombophlebitis of other sites Status: Acute Assessment and Plan: no need to receive anticoagulation GI Consult Note Consult date/time: 06/19/20 12:44 Reason for consult: melena HPI: Nain Hurley is a 50 year old male with recent hospitalization here with symptomatic anemia and UGIB, EGD 06/14 found large non-bleeding duodenal ulcer, erosive esophagitis and small gastric ulcers- did not have to treat endoscopically. He also was found to have brain tumor for which he was transferred to [facility] but then discharged and told to follow up as outpatient. He came to ER yesterday because increased redness, swelling, and pain of his right upper arm. The patient had an IV in his right antecubital fossa during his last hospitalization at [facility]. He denies any fevers, chills. He also report still some black stools but no more nausea or vomiting, also mild pain in upper abdomen. Hb 6.9 (it was 3.5 during recent hospitalization and after receiving blood transfusion 7-8) and received another unit PRBC yesterday, new hb pending. He never had a colonoscopy Review of Systems Constitutional: Constitutional: Reports fatigue Eyes: Eyes: Reports no additional eye complaints ENT: Reports Normal hearing present Cardiovascular: Cardiovascular: Reports no additional cardiovascular complaints Respiratory: Respiratory: Denies cough Gastrointestinal: Gastrointestinal: Reports no additional gastrointestinal complaints Genitourinary: Genitourinary: Denies dysuria Musculoskeletal: Musculoskeletal: Denies neck pain Integumentary/Breasts: Skin/Breast: Reports erythema (right arm) Neurologic: Denies confusion Psychiatric: Psychiatric: Denies confusion [facility] Past Medical History Medical History Coronary artery disease With history of [place] in 2018 status post stent x2, done at [facility]. Gastroesophageal reflux disease Kidney stones Narcolepsy Peptic ulcer disease On EGD in December [address] Aguilar. Reflux esophagitis On EGD in December [address] Aguilar. Tobacco abuse Surgical History Surgical History History of heart artery stent (~2018) X2. Family History Family History Mother No problems noted. Father Heart attack COPD (chronic obstructive pulmonary disease) Hypertension Social History Social History Social History: The patient is single and is currently living in a local motel. 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 He began smoking at age 15 and smokes about a half a pack of cigarettes per day and also chews tobacco. He drank heavily but
[2020-06-19 17:54] LABS: Hematocrit 23.8 % (42.0-52.0); Hemoglobin 7.5 g/dL (14.0-18.0)
[2020-06-20 00:36] LABS: Hematocrit 23.9 % (42.0-52.0); Hemoglobin 7.6 g/dL (14.0-18.0)
[2020-06-20] MEDS: HYDROcodone/acetaminophen (*CRX) 5-325 MG TABLET 1 TAB PO (04:18)
[2020-06-20 05:37] LABS: Hematocrit 24.8 % (42.0-52.0); Hemoglobin 7.9 g/dL (14.0-18.0)
[2020-06-20 06:00] VITALS: BP 120/65; PULSE 87; RESP 20; TEMP 36.6; O2SAT 99
[2020-06-20] MEDS: ONDANSETRON INJ 4 MG/2 ML VIAL IV PUSH (06:40)
[2020-06-20] MEDS: SUCRALFATE SUSP 100 MG/ML 10 ML UDC 1000 MG PO ×2 (07:54→12:24)
[2020-06-20] MEDS: PANTOPRAZOLE 40 MG TABLET PO (08:27)
--- NOTE | 2020-06-20 09:31 | PM.DS ---
DS: Admitting Diagnosis Admitting Diagnosis Admitting Diagnosis: Right upper extremity pain, edema, possible DVT DS: Discharge Diagnosis Discharge Diagnosis (1) Acute GI bleeding: Code(s): K92.2 - Gastrointestinal hemorrhage, unspecified Status: Acute Assessment and Plan: The patient has been admitted for observation. He has been transfused 1 u pRBC 06/19 given that his Hgb 6.9 that day. No reports of melena/BRBPR again today. GI has been consulted and following; appreciate recommendations Discharge home today F/u with Dr. Uriarte in 2 mo F/u with PCP H/H to be done on 06/23 for further monitoring Discussed refraining from NSAIDs/ASA Continue PPI and carafate therapy (2) Superficial thrombophlebitis of arm: Qualifiers: Laterality: right Qualified Code(s): I80.8 - Phlebitis and thrombophlebitis of other sites Code(s): I80.8 - Phlebitis and thrombophlebitis of other sites Status: Acute Assessment and Plan: Venous doppler RUE negative for DVT; superficial thrombus noted Warm compresses (3) Normocytic anemia: Code(s): D64.9 - Anemia, unspecified Status: Acute Assessment and Plan: Hgb 7.9; likely secondary to an acute GI bleed. Continue treatment with PPI and carafate H&H on 06/23 Please see above a/p DS: Summary Hospital Course Reason for hospitalization: Right upper extremity redness/swelling, DVT rule out. Acute blood loss anemia/upper GI bleed Hospital Course: Patient is a 50 year old male with known history of PUD, GERD, brain mass who was just recently admitted for a GI bleed and who was just discharged from [facility] on 06/16 after he was evaluated for his brain mass that he was told is benign. He presented to the ED with increased redness and swelling and pain in his right upper arm, where he had a IV on his previous hospitalization. While in the ED, there were concerns for possible DVT. Patient also reported intermittent dark stools since his last discharge. Dr. Uriarte (GI) was consulted from ED in regards to reports of melena; H&H was relatively stable on arrival. Patient admitted under this setting. Please see H&P for further details. Patient was admitted to the hospitalist service for further evaluation. RUE venous doppler was positive for superficial thrombosis which was then treated with warm compress; no DVT identified in that extremity. His Hgb dropped to 6.9 the morning after presentation and thus was transfused 1 u pRBC. His melena improved/resolved during stay and he was placed back on his PPI and carafate therapy after diet was advanced. Hgb remained stable after transfusion. Plan was for him to be discharged home with follow up with his PCP and Dr. Uriarte as an outpatient. H&H was to be done on 06/23 as an outpatient for further monitoring. Avoidance of NSAIDS was strongly encouraged. Patient agreeable and comfortable with plan for discharge. Patient hemodynamically stable and in improved condition for discharge on 06/20 Status at Discharge Overall status at discharge: patient is progressing back to baseline Time Spent with Patient Time attestation: Total time spent providing and/or coordinating discharge services: Time spent: Greater than 30 minutes Exam Narrative: Exam Narrative: General: Patient resting supine in bed in no acute distress. HEENT: Normocephalic, EOMI, oral mucosa moist. Cardiovascular: Rate and rhythm are regular. No notable murmur, rub, or gallop. Respiratory: Lungs clear to auscultation all bran. Non-labored breathing. Abdomen: Soft, non-tender, non-distended, bowel sounds present. Extremities: Peripheral pulses intact. No edema. NTTP b/l calves. TTP on right, distal anterior aspect of chung. Mild pain with dorsiflexion Neuro: No focal neurological de
--- NOTE | 2020-06-20 13:00 | WPDGIPROGNO ---
Progress Note: A&P Assessment and Plan (1) Duodenal ulcer: Code(s): K26.9 - Duodenal ulcer, unspecified as acute or chronic, without hemorrhage or perforation Status: Acute Assessment and Plan: EGD last hospitalization with large DU, will need intermediate designer ppi bid Urszula-test negative repeat EGD in 2 months (also will do a colonoscopy since never had one) (2) Gastroesophageal reflux disease: Qualifiers: Esophagitis presence: esophagitis presence not specified Qualified Code(s): K21.9 - Gastro-esophageal reflux disease without esophagitis Code(s): K21.9 - Gastro-esophageal reflux disease without esophagitis Status: Chronic (3) Colon cancer screening: Code(s): Z12.11 - Encounter for screening for malignant neoplasm of colon Status: Acute Assessment and Plan: never had a colonoscopy, we can do it as outpatient when he is back for his repeat EGD (4) Acute blood loss anemia: Code(s): D62 - Acute posthemorrhagic anemia Status: Acute Assessment and Plan: stable after one unit of blood transfusion 24 hours ago monitor cbc as outpatient Subjective Date/time seen: 06/20/20 13:00 Interval history: last BM with brown stool, hb stable at 7.8 since blood transfusion yesterday. He is going home later today. Review of Systems Review of Systems: All systems reviewed & are unremarkable except as noted in HPI and below Exam Const: General: cooperative, comfortable, alert and awake Nutritional Appearance: well nourished Orientation/consciousness: patient oriented x3 HENMT: Head: normal to inspection General nose exam: Normal external nose present and Normal nares present Face and sinus: normal facial exam Mouth: Yes Normal oral and palatal mucosa present and Yes oropharynx normal Eyes: Pupils: Equal, round and reactive pupils present Neck: Neck: supple and no JVD Resp: Effort & Inspection: normal respiratory effort Auscultation: clear to auscultation bilaterally Cardio: Rate: regular rate Rhythm: regular rhythm Heart sounds: no murmurs GI: Inspection: normal to inspection GI Palp: Yes Soft to palpation and No Firmness to palpation present (GI) Auscultation: normal bowel sounds Skin: General skin exam: erythema (right arm) Neuro: General: patient oriented x3 Cranial nerves: Yes CN's II-XII intact bilaterally and Yes Equal, round and reactive pupils present Speech: normal speech Motor exam (neuro): 5/5 motor strength present throughout Sensory Exam: normal sensation Extrem: General: normal to inspection and edema (RUE++ ) Right upper extremity: shoulder/upper arm (Erythema++ and edema+++ ) Psych: Mental Status: mental status grossly normal Affect: normal affect Objective Data Vital Signs Vital Signs: Vital Signs - 24 hr 06/19/20 14:00 06/19/20 22:00 06/20/20 06:00 Temperature 98.6 F 98.4 F 97.9 F Pulse Rate 79 81 87 Respiratory Rate 18 14 20 Blood Pressure 110/51 L 104/57 L 120/65 Pulse Oximetry 100 100 99 Intake/Output Intake/Output: Intake & Output 06/17/20 06/18/20 06/19/20 06/20/20 23:59 23:59 23:59 23:59 Intake Total 1797 420 Output Total 475 1200 Balance 1322 -780 Meds/Results Medications: Active Medications Generic Name Dose Route Start Last Admin Trade Name Freq PRN Reason Stop Dose Admin Acetaminophen 650 mg 06/19/20 09:10 Acetaminophen 325 Mg Tablet PO Q6H PRN Pain Rated 5 or Less Hydrocodone Bitart/Acetaminophen 1 tab 06/19/20 09:10 06/20/20 04:18 Hydrocodone/Acetaminophen (*Crx) 5-325 Mg Tablet PO 1 tab Q4H PRN Administration Pain Rated 6 or Greater Atorvastatin Calcium 40 mg 06/19/20 01:50 06/19/20 20:02 Atorvastatin 40 Mg Tablet PO 40 mg HS CAROL Administration Pantoprazole Sodium 40 mg 06/19/20 09:00 06/20/20 08:27 Pantoprazole 40 Mg Tablet PO 40 mg BID CAROL Administration Sucralfate 1,000 mg 06/19/20 08:00 06/20/20 12:24 Sucralfate
== END 2020-06-20 13:10 | disposition home or self-care (01) ==
LOC: ANHED 22:29 → ANH2MED 22:44
PROVIDERS: Physician Assistant; Admitting Provider Family Medicine; Emergency Provider Emergency Medicine; Visit Provider Internal Medicine
DX: I82.611 Acute embolism and thrombosis of superficial veins of right upper extremity (principal); I80.8 Phlebitis and thrombophlebitis of other sites; K26.9 Duodenal ulcer, unspecified as acute or chronic, without hemorrhage or perforation; D62 Acute posthemorrhagic anemia; K21.9 Gastro-esophageal reflux disease without esophagitis; I25.10 Atherosclerotic heart disease of native coronary artery without angina pectoris; F17.210 Nicotine dependence, cigarettes, uncomplicated; Z95.5 Presence of coronary angioplasty implant and graft; Z23 Encounter for immunization
CPT/HCPCS: 36415; 36430; 80048; 82550; 85014; 85018; 85025; 85380; 85610; 85652; 85730; 86140; 86850; 86900; 86901; 86923; 90471; 90653; 93971; 96360; 96361; 96374; 99285; A9270; G0008; G0378; G0379; J2405; J7050; P9016

== ENCOUNTER 2020-09-25 23:08 | Inpatient (IN) | payer OTHER, SELFPAY ==
--- NOTE | ~2020-09-25 | XR_ITS ---
EXAMINATION: XR chest 1V portable INDICATION: Chest pain TECHNIQUE: Portable AP chest at 2335 hours COMPARISON: None available FINDINGS: Minimal opacities are present in the lung bases. There is no pleural effusion or pneumothor ax. The cardiomediastinal silhouette is normal. IMPRESSION: 1. Minimal bibasilar airspace opacities, consistent with atelectasis versus pneumonia. Reviewed, dictated and finalized at location A. DESIGN ENGINEER IMPRESSION: 1. Minimal bibasilar airspace opacities, consistent with atelectasis versus pne umonia.
--- NOTE | ~2020-09-25 | CT_ITS ---
EXAMINATION: CTA chest DATE: 09/26/2020 00:25 INDICATION: Chest pain TECHNIQUE: Computed tomographic angiography (CTA) of the chest was performed with 100 mL Omnipque-350 intravenous contrast. Maximum intensity projection 3D-reconstructions of the aorta and other arterie s were constructed by the technologist on a separate workstation. The dose-length product (DLP) was 6 74.38 mGy-cm. Automated exposure control and iterative reconstruction technique were employed. COMPARISON: 06/13/2020 FINDINGS: There is no aneurysm or dissection of the thoracic aorta. Cardiomegaly is noted. There are coronary artery stents. There is a stable 4 mm nodule of the right lower lobe. There are minimal grou ndglass opacities in the lower lobes. There is no pleural effusion or pneumothorax. No pathologically enlarged thoracic lymph nodes are identified. There is mild thoracic spondylosis. IMPRESSION: 1. No aneurysm or dissection of the thoracic aorta. 2. Mild atelectasis. 3. 4 mm nodule of the right lower lobe, likely old granulomatous disease. If the patient has no risk factors for malignancy, no further follow up is required. If there are risk factors for malignancy ( i.e., history of smoking, asbestos or radiation exposure), consider followup CT in 12 months. Reviewed, dictated and finalized at location A. FISHERMAN IMPRESSION: 1. No aneurysm or dissection of the thoracic aorta. 2. Mild atelectasis. 3. 4 mm nodule of the right lower lobe, likely old granulomatous disease. If th e patient has no risk factors for malignancy, no further follow up is required. If there are risk factors for malignancy (i.e., history of smoking, asbestos or radiation exposure), consider followup CT in 12 months.
[2020-09-25 23:10] VITALS: BP 154/96; PULSE 96; RESP 16; TEMP 37.2; O2SAT 100
--- NOTE | 2020-09-25 23:13 | ECG_ITS ---
Measurements Intervals [place] Rate: 95 P: 37 KS: 122 QRS: -15 QRSD: 118 T: 91 QT: 361 QTc: 454 Interpretive Statements SINUS RHYTHM INTRAVENTRICULAR CONDUCTION DELAY MINIMAL Q WAVES- LAT/HIGH LAT LEADS BORDERLINE ST-T WAVE ABNORMALITY- HIGH LATERAL LEADS BASELINE ARTIFACT- I, II, III, AVR, AVL, AVF, V5 BORDERLINE ECG Electronically Signed On 09-26-2020 7:06:05 [employer] by Chidi Hauser D.O.
[2020-09-25] MEDS: ASPIRIN 81 MG CHEWABLE TABLET 324 MG PO (23:24)
[2020-09-25 23:33] LABS: Basophils Absolute Auto 0.1 K/mm3 (0.0-0.1); Basophils Percent Auto 0.7 % (0.2-1.2); Eosinophils Absolute Auto 0.4 K/mm3 (0-0.3); Eosinophils Percent Auto 4.2 % (0-4.4); Hematocrit 30.2 % (42.0-52.0); Hemoglobin 8.8 g/dL (14.0-18.0); Immature Granulocyte Absolute 0.01 K/mm3 (0.00-0.031); Immature Granulocyte Percent A 0.1 % (0-0.5); Lymphocytes Percent Auto 35.8 % (18.3-44.2); Mean Corpuscular HGB Conc 29.1 g/dl (32-36); Mean Corpuscular Hemoglobin 22.3 pg (26-34); Mean Corpuscular Volume 76.5 fl (80-100); Mean Platelet Volume 10.4 fl (7.4-10.4); Monocytes Percent Auto 11.3 % (2.6-8.5); Neutrophils Absolute Auto 4.1 K/mm3 (1.3-6.7); Neutrophils Percent Auto 47.9 % (45.5-73.1); Platelet Count Result 343 k/mm3 (150-375); Red Blood Count 3.95 M/mm3 (4.6-6.20); Red Cell Distribution Width 16.7 % (11.5-14.5); White Blood Count 8.7 K/mm3 (4.5-10.0)
[2020-09-25 23:43] VITALS: PULSE 73
[2020-09-25] MEDS: ONDANSETRON INJ 4 MG/2 ML VIAL IV PUSH (23:43)
[2020-09-25] MEDS: METOPROLOL TARTRATE INJ 5 MG/5 ML VIAL IV PUSH ×2 (23:43→23:48)
[2020-09-25] MEDS: MORPHINE SULFATE (*CRX) 4 MG/ML INJ IV PUSH (23:44)
[2020-09-25] MEDS: NITROGLYCERIN OINTMENT 1 INCH DOSE TRANSDERM (23:44)
[2020-09-25 23:45] VITALS: BP 126/81; PULSE 70; RESP 23; O2SAT 100
[2020-09-25 23:47] LABS: Alanine Aminotransferase 14 U/L (4-50); Albumin Level 3.7 g/dL (3.5-5.1); Alkaline Phosphatase 60 U/L (38-126); Anion Gap 6 mmol/L (8-16); Aspartate Amino Transferase 23 U/L (17-59); Bilirubin,Total 0.1 mg/dL (0.2-1.3); Blood Urea Nitrogen 10 mg/dL (9-20); Calcium 8.2 mg/dL (8.4-10.2); Carbon Dioxide 24 mmol/L (22-30); Chloride 109 mmol/L (98-107); Estimated CRCL calculation 125 ml/min; Estimated Glomerular Filt Rate > 60; Glucose 121 mg/dL (75-110); Potassium 3.8 mmol/L (3.4-5.0); Sodium 139 mmol/L (137-145)
[2020-09-25 23:48] VITALS: PULSE 69
[2020-09-25 23:51] LABS: Hypochromasia 2+ (NORMAL); Ovalocytes 1+ (NORMAL); Platelet Estimate Adequate (Adequate)
[2020-09-25 23:58] LABS: Troponin I < 0.012 ng/mL (0.000-0.034)
[2020-09-26] VITALS (21 sets, daily range): BP systolic 86–123; BP diastolic 48–72; PULSE 49–72; RESP 14–20; TEMP 35.8–36.7; O2SAT 96–100; BMI 26.0
--- NOTE | 2020-09-26 | ECHO_ITS ---
Patient Info Name: Nain Hurley Age: 50 years : 1970 Gender: Male Ht: 69 in Wt: 204 lbs BSA: 2.15 m2 HR: 50 bpm BP: 80 / 65 mmHg Heart Rhythm: Bradycardia, Sinus Rhythm Technical Quality: Good Exam Date: 09/26/2020 11:11 AM Exam Location: [facility] Patient Status: Inpatient Admit Date: 09/26/2020 Staff Ordering Physician: Gustavo Arreaga MD Industrial Engineering Analyst: Dariel Mayorga RDCS Attending Provider: Mateo Latham MD Referring Physician: Whitley PARTIDA; Exam Type: CA echo doppler color flow Study Info Indications R07.9 - Chest pain, unspecified Complete two-dimensional, color flow and Doppler transthoracic echocardiogram is performed with contrast to opacify the left ventricle and to improve the deliniation of the left ventricle endocardial borders. Strain analysis performed. Contrast/Agitated Saline Contrast/Ag. Saline: Definity Amount: 3.00 ml Administered By: Regla Claire RN Existing IV Access: Yes History/Risk Factors NSTEMI; chest pain, CAD/IA w/ stents x2, anemia. Summary 1. Complete two-dimensional, color flow and Doppler transthoracic echocardiogram is performed with contrast to opacify the left ventricle and to improve the deliniation of the left ventricle endocardial borders. 2. Strain analysis performed. 3. Left ventricular chamber dimension is mildly enlarged. 4. Left ventricular systolic function is moderately reduced, estimated at 40-45%. 5. There is mildly increased left ventricular wall thickness. 6. The left ventricular diastolic function is normal. 7. Global longitudinal strain is abnormal at -13 %. 8. The mid anterolateral wall, and mid inferolateral wall are akinetic. 9. The inferior wall, anterior wall, apical lateral wall, basal anterolateral wall, and basal inferolateral wall are hypokinetic. 10. Left atrial chamber dimension is mildly enlarged. 11. There is mild aortic valve regurgitation. 12. There is moderate mitral valve regurgitation. 13. There is mild tricuspid valve regurgitation. 14. Mild pulmonary hypertension, estimated pulmonary arterial systolic pressure is 44 mmHg. Left Ventricle Left ventricular chamber dimension is mildly enlarged. Left ventricular systolic function is moderately reduced, estimated at 40-45%. There is mildly increased left ventricular wall thickness. The left ventricular diastolic function is normal. Global longitudinal strain is abnormal at -13 %. The mid anterolateral wall, and mid inferolateral wall are akinetic. The inferior wall, anterior wall, apical lateral wall, basal anterolateral wall, and basal inferolateral wall are hypokinetic. All other archuleta appear normal. Right Ventricle Right ventricular chamber dimension is normal. Right ventricular systolic function is normal. Left Atria Left atrial chamber dimension is mildly enlarged. Right Atria Right atrial chamber dimension is normal. Aortic Valve The aortic valve is trileaflet. There is mild aortic valve sclerosis. There is no aortic valve stenosis. There is mild aortic valve regurgitation. Pulmonic Valve The pulmonic valve is normal. There is no pulmonic valve stenosis. There is trace pulmonic regurgitation. Mitral Valve The mitral valve has thickened leaflets. There is no mitral valve stenosis. There is moderate mitral valve regurgitation. Tricuspid Valve The tricuspid valve leaflets are normal. There is no significant tricuspid v
[2020-09-26] MEDS: METOPROLOL TARTRATE INJ 5 MG/5 ML VIAL IV PUSH (00:01)
--- NOTE | 2020-09-26 00:01 | ED.CHESTPAIN ---
HPI - Chest Pain General Chief Complaint: Chest Pain Stated Complaint: I'm having a heart attack. my chest hurts Time Seen by Provider: 09/25/20 23:28 Source: patient and family Limitations: no limitations History of Present Illness HPI narrative: Patient is 50 years old white male presents with chest pressure across the chest started 4:30 PM today, got better with sleeping, woke up to go to work and pain back again. Initially pain was 8 out of 10, currently 10 out of 10. Pain is radiating to right upper extremity. Patient denies any fever, chills, nausea, vomiting, diarrhea, constipation, abdominal pain. Patient reports history of coronary stents times 09/2017, ran out of medications 2 years ago. Currently patient does not take any medicine. Related Data Home Medications Medication Instructions Recorded Confirmed atorvastatin 40 mg PO DAILY 06/18/20 06/18/20 ondansetron HCl 4 mg PO Q6H PRN 06/18/20 06/18/20 sucralfate 10 ml PO QID 06/18/20 06/18/20 Allergies Allergy/AdvReac Type Severity Reaction Status Date / Time No Known Allergies Allergy Mild Verified 06/18/20 23:33 Review of Systems Review of Systems: Narrative: CONSTITUTIONAL: Denies fever, chills, or sweats. EYES: Denies visual changes, redness, or discharge. ENT: Denies rhinorrhea, congestion, sore throat, or otalgia. CARDIOVASCULAR: Denies chest pain, palpitations, or edema. RESPIRATORY: Denies cough or dyspnea. GASTROINTESTINAL: Denies abdominal pain, nausea, vomiting, or diarrhea. GENITOURINARY: Denies dysuria or hematuria. SKIN: Denies rash or itching. MUSCULOSKELETAL: Denies back pain, joint pain, or myalgia. NEUROLOGIC: Denies headache, numbness, or weakness. PSYCHIATRIC: Denies anxiety or depression. [facility] Past Medical History Medical History Acute blood loss anemia Coronary artery disease With history of UT in 2018 status post stent x2, done at [facility]. Duodenal ulcer Gastroesophageal reflux disease Kidney stones Narcolepsy Peptic ulcer disease On EGD in December [address] Aguilar. Reflux esophagitis On EGD in December [address] Aguilar. Tobacco abuse Surgical History Surgical History History of heart artery stent (~2018) X2. Family History Family History Mother No problems noted. Father Heart attack COPD (chronic obstructive pulmonary disease) Hypertension Social History Social History Social History: The patient is single and is currently living in a local motel. 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 He began smoking at age 15 and smokes about a half a pack of cigarettes per day and also chews tobacco. He drank heavily but quit in 2012 when he began having problems with his stomach. Previous marijuana use. He designates his mother, Yolanda Hurley, as his surrogate decision maker and he wishes to be a full code. Smoking packs per day: 0.5 Smoking cigarettes per day: 10.0 Years smoked: 35 Smoking pack-years: 17.50 Smoking status: Current every day smoker Tobacco type: cigarettes Smokeless tobacco user: chewing tobacco Alcohol intake: former Substance use: former Substance use type: does not use Gender identity (if verbalized by the patient): Male Spiritual care concerns: No Exam Narrative: Exam Narrative: General appearance: Well-developed, well-nourished Skin: Normal color Head: Normocephalic, nontraumatic Eyes: Clear conjunctiva ENT: Oropharynx normal, ears normal, nose normal Neck: Supple, nontender Chest and respiratory: Airway patent, no respiratory distress, no accessory muscle use Heart: Regular rate/rhythm Abdomen: Soft, nontender, no organomegaly, quiet bowel sounds Vascular: Normal peripheral pulses, normal capillary refill. Musculoskeletal: N
[2020-09-26] MEDS: BELLADONNA ALK/PHENOB ELIX 10 ML, MAG HYDROX/ALUMINUM HYD/SIMETH 30 ML, LIDOCAINE HCL 2... PO (00:22)
--- NOTE | 2020-09-26 01:41 | PM.IMHP ---
H&P: HPI History of Present Illness Date/Time: 09/26/20 01:41 Chief Complaint: chest pain Narrative: This is a 50 year old male with known history of previous HI s/p #2 stents placed in 2018, GERD, and PUD who presented to the hospital this evening secondary to midsternal chest pressure that started around 4:30 yesterday afternoon while he was walking. His chest pain radiates towards his right shoulder. He denies any associated symptoms of shortness of breath, nausea, vomiting, or diaphoresis. The patient admits that he has not been taking his cardiac medications for over 2 years now. On arrival to the ER the patient was complaining of severe, 10/10 chest pain. He was treated with ASA, nitro, morphine, and a GI cocktail which has almost alleviated his chest pain now. He currently denies abdominal pain, nausea, vomiting, coughing, palpitations, dysuria, rectal bleeding, LE swelling, headache, fever, chills, sore throat, or focal neurological symptoms. He also denies any recent black stools. He is known to smoke 1 pack of cigarettes every 2 days. The patient does have a history of previous GI bleeding. He has not been taking any NSAIDS recently. Routine labs were virtually unremarkable other than chronic anemia. CTA chest was performed in the ER and was unremarkable. Initial troponin was negative. EKG did not demonstrate and ST segment elevation. ER provider has consulted Cardiology who has asked that we admit the patient to the hospital for cardiac rule out. Review of Systems Review of Systems: All systems reviewed & are unremarkable except as noted in HPI and below PMFSH Past Medical History Medical History Acute blood loss anemia Coronary artery disease With history of HI in 2018 status post stent x2, done at [facility]. Duodenal ulcer Gastroesophageal reflux disease Kidney stones Narcolepsy Peptic ulcer disease On EGD in December [address] Aguilar. Reflux esophagitis On EGD in December [address] Aguilar. Tobacco abuse Surgical History Surgical History History of heart artery stent (~2018) X2. Family History Family History Mother No problems noted. Father Heart attack COPD (chronic obstructive pulmonary disease) Hypertension Social History Social History Social History: The patient is single and is currently living in a local motel. 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 He began smoking at age 15 and smokes about a half a pack of cigarettes per day and also chews tobacco. He drank heavily but quit in 2012 when he began having problems with his stomach. Previous marijuana use. He designates his mother, Yolanda Hurley, as his surrogate decision maker and he wishes to be a full code. Smoking packs per day: 1 Smoking cigarettes per day: 20.0 Years smoked: 30 Smoking pack-years: 30.00 Smoking status: Current every day smoker Tobacco type: cigarettes Smokeless tobacco user: chewing tobacco Alcohol intake: never Substance use: never Substance use type: does not use Gender identity (if verbalized by the patient): Male Spiritual care concerns: No Meds Home Medications and Allergies Home Medications Medication Instructions Recorded Confirmed Type No Home Medications 09/26/20 09/26/20 History Allergies Allergy/AdvReac Type Severity Reaction Status Date / Time No Known Allergies Allergy Mild Verified 06/18/20 23:33 Vital Signs Vital Signs - 24 hr 09/25/20 23:10 09/25/20 23:43 09/25/20 23:45 Temperature 37.2 C Pulse Rate 96 73 70 Respiratory Rate 16 23 H Blood Pressure 154/96 H 126/81 Pulse Oximetry 100 100 09/25/20 23:48 09/26/20 00:01 09/26/20 00:23 Temperature Pulse Rate 69 68 63 Respiratory Rate
--- NOTE | 2020-09-26 02:47 | ADMGEN ---
This patient, Nain Hurley, was admitted to IMU Room 202-01. Patient/family oriented to hospital policies and general routines including ID bracelet, bed and alarms, visiting hours, pain management, procedures, bathroom and other care routines, personal items, smoking policy, room service/diet, and visiting hours. Information on how to activate the Rapid Response Team has been discussed. Patient/Family are encouraged to report perceived risks to care and to ask questions if they do not understand what they are told or what they should do.
[2020-09-26 04:57] LABS: Hematocrit 28.1 % (42.0-52.0); Hemoglobin 8.2 g/dL (14.0-18.0)
[2020-09-26] MEDS: NITROGLYCERIN SL 0.4 MG TABLET SUBLINGUAL ×3 (05:17→09:07)
[2020-09-26 05:26] LABS: Anion Gap 2 mmol/L (8-16); Blood Urea Nitrogen 9 mg/dL (9-20); Carbon Dioxide 27 mmol/L (22-30); Chloride 109 mmol/L (98-107); Cholesterol 138 mg/dL (0-200); Estimated CRCL calculation 125 ml/min; Estimated Glomerular Filt Rate > 60; Glucose 101 mg/dL (75-110); HDL Direct 54 mg/dL; Lipase 52 U/L (23-300); Potassium 4.2 mmol/L (3.4-5.0); Sodium 138 mmol/L (137-145); Triglycerides 91 mg/dL (<150)
[2020-09-26 05:37] LABS: LDL Cholesterol Direct 65 mg/dL
[2020-09-26 05:48] LABS: Troponin I 0.837 ng/mL (0.000-0.034)
[2020-09-26] MEDS: SODIUM CHLORIDE 0.9% IV 500 ML 999 ML IV CONT ×2 (06:19→10:54)
[2020-09-26] MEDS: PANTOPRAZOLE SODIUM IV 40 MG VIAL IV PUSH (08:27)
[2020-09-26] MEDS: METOPROLOL TARTRATE 25 MG TABLET PO (08:27)
[2020-09-26] MEDS: ASPIRIN 81 MG ENTERIC TABLET PO (08:28)
--- NOTE | 2020-09-26 09:21 | PM.CNCAR ---
Assessment and Plan Assessment and plan (1) CAD (coronary artery disease): Qualifiers: Coronary Disease-Associated Artery/Lesion type: [place] artery [place] vs. transplanted heart: [place] heart Associated angina: without angina Qualified Code(s): I25.10 - Atherosclerotic heart disease of [place] coronary artery without angina pectoris Code(s): I25.10 - Atherosclerotic heart disease of [place] coronary artery without angina pectoris Status: Acute Assessment and Plan: Start low-dose aspirin 81 mg p.o. daily. Will reduce metoprolol down to 12.5 mg b.i.d.. Will add a statin in the form of rosuvastatin 20 mg daily. (2) Tobacco dependence: Code(s): F17.200 - Nicotine dependence, unspecified, uncomplicated Status: Chronic Assessment and Plan: Tobacco abuse counseling is performed (3) NSTEMI (non-ST elevated myocardial infarction): Code(s): I21.4 - Non-ST elevation (NSTEMI) myocardial infarction Status: Acute Assessment and Plan: Chest pain is consistent with non ST elevation myocardial infarction. Will request records from [facility] regarding his angiogram and stent placements in 2018. After discussing the risks, benefits alternatives patient is agreeable to proceed with a coronary angiogram to define his coronary anatomy. He also states that he will take his medications routinely as prescribed. Add pantoprazole 40 mg p.o. b.i.d. (4) Hyperlipemia: Code(s): E78.5 - Hyperlipidemia, unspecified Status: Acute Assessment and Plan: Adverse of the statin 20 mg daily. Will check a lipid panel. History of Present Illness History of Present Illness Consult date/time: 09/26/20 09:21 Requesting physician: Mateo Latham MD Consult reason: chest pain Reason For Visit: Chest Pain Narrative: Date of service 09/26/2020 Reason for consultation: Non-STEMI History patient 50-year-old male who has previous coronary stents placed at [facility]. Unknown details. Last fall he had been hospitalized because of a large duodenal ulcer. He has had no recent bleeding issues he states. Came into the hospital yesterday because of chest pain. Chest pain started rather acutely at around 4:30 p.m.. It then later radiated up into his neck and shoulders. He describes as a pressure. He also had some numbness and tingling in his fingertips. It was associated some shortness of breath also. Denies any syncope, presyncope, paroxysmal nocturnal dyspnea, orthopnea, edema or significant palpitations. He was recently given nitroglycerin which did provide some relief. Troponins have continued to slowly rise in her now above 1.0. He continues to smoke cigarettes. He is not always been compliant with medications but verbalizes that he will be at this point. Pain has improved but still has some residual discomfort in his shoulder. Review of Systems Review of Systems: All systems reviewed & are unremarkable except as noted in HPI and below Constitutional: Constitutional: Denies weakness Eyes: Eyes: Denies blurry vision ENT: Reports Normal hearing present Cardiovascular: Cardiovascular: Reports chest pain Respiratory: Respiratory: Reports dyspnea Gastrointestinal: Gastrointestinal: Denies abdominal pain Comments: History of ulcers Genitourinary: Genitourinary: Denies dysuria Musculoskeletal: Musculoskeletal: Denies neck pain Integumentary/Breasts: Skin/Breast: Denies dry skin and Denies unusual bruising Neurologic: Denies headache(s) and Denies numbness Psychiatric: Psychiatric: Denies anxiety and Denies confusion Endocrine: Endocrine: Denies fatigue and Denies flushing Hematologic/Lymphatic: Hematologic/Lymphatic: Denies easy bleeding and Denies easy bruising Allergic/Immunologic: Allergic/Immunologic: Denies GI upset with certain foods PMFSH Past Medical History Medical History Acute bloo
[2020-09-26 09:58] LABS: Cholesterol 133 mg/dL (0-200); HDL Direct 53 mg/dL; Triglycerides 74 mg/dL (<150)
[2020-09-26 10:09] LABS: LDL Cholesterol Direct 69 mg/dL
[2020-09-26 11:04] LABS: Hematocrit 27.6 % (42.0-52.0); Hemoglobin 7.9 g/dL (14.0-18.0)
--- NOTE | 2020-09-26 11:34 | PM.IMPN ---
Progress Note: A&P Assessment and Plan (1) Chest pain: Qualifiers: Chest pain type: unspecified Qualified Code(s): R07.9 - Chest pain, unspecified Code(s): R07.9 - Chest pain, unspecified Status: Acute Assessment and Plan: The patient has been placed in observation status. Telemetry, NPO. Trend troponin. Check another EKG now. Check lipase which hasn't been done yet. r/o ACS, dyspepsia, PUD, GERD, musculoskeletal pain. Continue nitro, morphine for chest pain. Cardiology has been consulted by ER provider. Continue ASA therapy and beta migel. Continue Cardiology recommendations. 09/26/20 11:34 patient is a 50-year-old male with history of coronary artery disease he had a stent placed in 2018 at the [facility], patient has not seen by his crushing foreman or primary care for last 2 years per patient and currently is not taking any medication, patient presented emergency department with a complaint of persistent chest pain and elevated tropes patient is seen by crushing foreman suspect patient has a non STEMI patient was started on metoprolol, aspirin, nitrite, and morphine to control his pain, patient is seen by crushing foreman is scheduled to have cardiac catheterization later today and will follow-up, patient does have history of duodenal ulcer which is healing and there is no recent bleeding. (2) Normocytic anemia: Code(s): D64.9 - Anemia, unspecified Status: Chronic Assessment and Plan: Chronic anemia. The patient has a history of GI bleeding. we will check FOBT, monitor H/H, transfuse prn. (3) Gastroesophageal reflux disease: Qualifiers: Esophagitis presence: esophagitis presence not specified Qualified Code(s): K21.9 - Gastro-esophageal reflux disease without esophagitis Code(s): K21.9 - Gastro-esophageal reflux disease without esophagitis Status: Chronic Assessment and Plan: Continue protonix. (4) Dyslipidemia: Code(s): E78.5 - Hyperlipidemia, unspecified Status: Chronic Assessment and Plan: Check lipid panel. continue lipitor. (5) Tobacco dependence: Code(s): F17.200 - Nicotine dependence, unspecified, uncomplicated Status: Chronic Assessment and Plan: I have counseled the patient regarding tobacco cessation for 4 minutes. He verbalized his agreement and understanding of same. Subjective Date/time seen: 09/26/20 11:34 patient is a 50-year-old male with history of coronary artery disease he had a stent placed in 2018 at the [facility], patient has not seen by his crushing foreman or primary care for last 2 years per patient and currently is not taking any medication, patient presented emergency department with a complaint of persistent chest pain and elevated tropes patient is seen by crushing foreman suspect patient has a non STEMI patient was started on metoprolol, aspirin, nitrite, and morphine to control his pain, patient is seen by crushing foreman is scheduled to have cardiac catheterization later today and will follow-up, patient does have history of duodenal ulcer which is healing and there is no recent bleeding. Review of Systems Review of Systems: All systems reviewed & are unremarkable except as noted in HPI and below Exam Narrative: Exam Narrative: Patient appears chronically ill Patient is comfortable, NAD HEENT: eyes are clear and none icteric LUNGS:CTA HEART: RR S1S2 ABD: BS+, Soft and nontender Lower extremities: no edema SKIN: nonjaundiced Neuro: grossly intact. Objective Data Vital Signs Vital Signs: Vital Signs - 24 hr 09/25/20 23:10 09/25/20 23:43 09/25/20 23:45 Temperature 98.9 F Pulse Rate 96 73 70 Respiratory Rate 16 23 H Blood Pressure 154/96 H 126/81 Pulse Oximetry 100 100 09/25/20 23:48 09/26/20 00:01 09/26/20 00:23 Temperature Pulse Rate 69 68 63 Respiratory Rate 16 Blood Pressure 110/70 Pulse Oximetry 100 09/26/20 02:
[2020-09-26] MEDS: PERFLUTREN LIPID MICROSPHERES 1.5 ML VIAL DILUTED TO 10 ML TOTAL VOLUME IV PUSH (11:45)
--- NOTE | 2020-09-26 13:49 | PM.PNCARD ---
Progress Note: A&P Additional Plan 50-year-old man with a very challenging clinical situation presenting with acute coronary syndrome but also having a significant contraindication to angiography. In my opinion we should make a significant effort to treat this patient medically both for his coronary disease, ulcer disease and transfuse him up to a more reasonable hemoglobin level of at least 9 or 10 g. If he fails medical therapy then angiography should be considered but since we know he has gastric ulcers, esophageal ulcers and esophageal erosive lesions he is at very high risk for hemorrhagic complications following revascularization. I would recommend adding aspirin and Plavix to his regimen, oral nitrates and transfusing him at least to hemoglobin of 9 g. Looks like statins have already been ordered. Nain Carter MD [facility] Subjective Date/time seen: Date of service: 09/26/20 13:49 Interval history: 50-year-old man with: History of coronary artery disease with previous cyst PCI presenting with chest pain evidence of acute coronary syndrome with elevation of troponin as detailed in Consul known. Patient seen in the room prior to considering bringing him to the stucco laborer for angiogram in the setting of severe anemia. The entire chart was reviewed and the patient was seen. Patient was in the hospital recently with significant GI bleeding hemoglobin as low as 3.5. Upper endoscopy demonstrated duodenal ulcers, gastric ulcers and erosive esophagitis. Apparently he was not compliant with medication as he was taking no medication for his ulcer disease upon arrival to the hospital. Patient is at substantially higher risk for angiographic assessment of his coronary disease and interventional treatment since he is significantly anemic at baseline has documented ulcer disease which is not been treated effectively presumably because of noncompliance and certainly this does substantially raise the risk of interventional procedures. Furthermore he has been taking no medication for is coronary disease so a high risk intervention would be more appropriate if he is documented as failing a reasonable attempt at medical treatment. For this reason I told the patient it would be my decision to forego angiography today since he is not being treated with any medication for his coronary disease he is significantly anemic and in this setting is a substantially higher risk for catheterization and interventional procedures. Exam Const: General: comfortable and no acute distress Other: Overweight white male sleeping in bed upon awakening is appropriate and responsive. HENMT: Mouth: Yes moist mucous membranes Eyes: Sclera: sclerae normal Pupils: Equal, round and reactive pupils present Neck: Neck: supple Resp: Effort & Inspection: normal respiratory effort Auscultation: clear to auscultation bilaterally Cardio: Rate: regular rate Rhythm: regular rhythm GI: GI Palp: Yes Soft to palpation Auscultation: normal bowel sounds Skin: General skin exam: normal color Neuro: Cognition (Neuro): normal cognition Extrem: General: normal to inspection Objective Data Vital Signs Vital Signs: Vital Signs - 24 hr 09/25/20 23:10 09/25/20 23:43 09/25/20 23:45 Temperature 37.2 C Pulse Rate 96 73 70 Respiratory Rate 16 23 H Blood Pressure 154/96 H 126/81 Pulse Oximetry 100 100 09/25/20 23:48 09/26/20 00:01 09/26/20 00:23 Temperature Pulse Rate 69 68 63 Respiratory Rate 16 Blood Pressure 110/70 Pulse Oximetry 100 09/26/20 02:45 09/26/20 02:55 09/26/20 03:02 Temperature 36.3 C L 35.8 C L Pulse Rate 59 L 55 L 52 L Respiratory Rate 14 20 Blood Pressure 101/52 L 100/60 Pulse Oximetry 99 99 09/26/20 03:11 09/26/20 05:25 09/26/20 06:07 Temperature Pulse Rate 54 L 72 Respiratory Rate Blood Pressure 102/51 L Pulse Oximetry 09/26/20 08:00 09/26/20 08:27 09/26/20 10:00 Temperature 35.8 C L Pulse Rate 59
[2020-09-26] MEDS: CLOPIDOGREL BISULFATE 75 MG TABLET PO (16:54)
[2020-09-26 17:38] LABS: Hematocrit 28.1 % (42.0-52.0)
[2020-09-26] MEDS: METOPROLOL TARTRATE 12.5 MG TABLET PO (19:56)
[2020-09-26] MEDS: PANTOPRAZOLE 40 MG TABLET PO (19:57)
[2020-09-27] VITALS (22 sets, daily range): BP systolic 117–129; BP diastolic 61–75; PULSE 54–82; RESP 16–20; TEMP 36.3–36.8; O2SAT 95–99
[2020-09-27 00:47] LABS: Hemoglobin 8.1 g/dL (14.0-18.0)
[2020-09-27 09:22] LABS: Hematocrit 29.5 % (42.0-52.0); Hemoglobin 8.9 g/dL (14.0-18.0); Mean Corpuscular HGB Conc 30.2 g/dl (32-36); Mean Corpuscular Hemoglobin 22.6 pg (26-34); Mean Corpuscular Volume 75.1 fl (80-100); Mean Platelet Volume 10.5 fl (7.4-10.4); Platelet Count Result 353 k/mm3 (150-375); Red Blood Count 3.93 M/mm3 (4.6-6.20); Red Cell Distribution Width 16.6 % (11.5-14.5); White Blood Count 9.1 K/mm3 (4.5-10.0)
[2020-09-27 09:32] LABS: Anion Gap 3 mmol/L (8-16); Blood Urea Nitrogen 11 mg/dL (9-20); Calcium 8.4 mg/dL (8.4-10.2); Carbon Dioxide 27 mmol/L (22-30); Chloride 108 mmol/L (98-107); Estimated CRCL calculation 98 ml/min; Estimated Glomerular Filt Rate > 60; Glucose 97 mg/dL (75-110); Magnesium 1.8 mg/dL (1.6-2.3); Potassium 4.4 mmol/L (3.4-5.0); Sodium 138 mmol/L (137-145)
--- NOTE | 2020-09-27 09:46 | PM.PNCARD ---
Progress Note: A&P Assessment and Plan (1) CAD (coronary artery disease): Qualifiers: Coronary Disease-Associated Artery/Lesion type: [place] artery [place] vs. transplanted heart: wiyot heart Associated angina: without angina Qualified Code(s): I25.10 - Atherosclerotic heart disease of w[place] coronary artery without angina pectoris Code(s): I25.10 - Atherosclerotic heart disease of [place] coronary artery without angina pectoris Status: Acute Assessment and Plan: DAPT, beta-migel, statin (2) Tobacco dependence: Code(s): F17.200 - Nicotine dependence, unspecified, uncomplicated Status: Chronic Assessment and Plan: Tobacco abuse counseling was again done today. Patient states that he will work on it. (3) NSTEMI (non-ST elevated myocardial infarction): Code(s): I21.4 - Non-ST elevation (NSTEMI) myocardial infarction Status: Acute Assessment and Plan: Clinical presentation consistent with non ST elevation myocardial infarction. Unfortunately, patient is currently not a candidate for early invasive strategy due to severe anemia, noncompliance with medical regimen and outpatient follow-up. He has history of GI bleed, and is severely anemic. It is uncertain if patient is currently actively bleeding. -recommend gastroenterology evaluation -check FOBT -continue PPI -monitor H&H (4) Hyperlipemia: Code(s): E78.5 - Hyperlipidemia, unspecified Status: Acute Subjective Date/time seen: 09/27/20 09:46 Interval history: 50-year-old man with history of coronary artery disease with previous cyst PCI presenting with chest pain evidence of acute coronary syndrome with elevation of troponin as detailed in Consul known. Patient seen in the room prior to considering bringing him to the laboratory chemist for angiogram in the setting of severe anemia. The entire chart was reviewed and the patient was seen. Patient was in the hospital recently with significant GI bleeding hemoglobin as low as 3.5. Upper endoscopy demonstrated duodenal ulcers, gastric ulcers and erosive esophagitis. Apparently he was not compliant with medication as he was taking no medication for his ulcer disease upon arrival to the hospital. Patient is at substantially higher risk for angiographic assessment of his coronary disease and interventional treatment since he is significantly anemic at baseline has documented ulcer disease which is not been treated effectively presumably because of noncompliance and certainly this does substantially raise the risk of interventional procedures. Furthermore he has been taking no medication for is coronary disease so a high risk intervention would be more appropriate if he is documented as failing a reasonable attempt at medical treatment. For this reason I told the patient it would be my decision to forego angiography today since he is not being treated with any medication for his coronary disease he is significantly anemic and in this setting is a substantially higher risk for catheterization and interventional procedures. Date of service 09/27/2020-patient denies any recurrent chest discomfort. He denies shortness of breath, palpitations or dizziness. As per staff, patient has been little combative and wants to leave the hospital. Exam Narrative: Exam Narrative: PHYSICAL EXAMINATION: GENERAL: Alert MENTAL STATUS: Angry EYES: Extraocular movements intact, pallor EARS: External ears appear normal, hearing grossly normal NOSE: Normal and patent, no discharge MOUTH: Mucous membranes moist, tongue normal NECK: Supple, no JVD CHEST: Good respiratory effort, clear to auscultation HEART: Normal rate, regular rhythm, normal S1 and S2, no audible murmurs ABDOMEN: Soft, nontender NEUROLOGICAL: Alert, oriented, normal speech, no gross motor deficits MUSCULOSKELETAL: No major deformity, no amputation EXTREMITIES: No pedal edema, no clubbing, no cyanosis SKIN: no rash
[2020-09-27] MEDS: ASPIRIN 81 MG ENTERIC TABLET PO (10:24)
[2020-09-27] MEDS: METOPROLOL TARTRATE 12.5 MG TABLET PO ×2 (10:24→20:31)
[2020-09-27] MEDS: CLOPIDOGREL BISULFATE 75 MG TABLET PO (10:24)
[2020-09-27] MEDS: PANTOPRAZOLE 40 MG TABLET PO ×2 (10:24→20:31)
[2020-09-27] MEDS: ISOSORBIDE MONONITRATE 30 MG TAB.ER.24H PO (10:24)
[2020-09-27] MEDS: ROSUVASTATIN 10 MG TABLET 20 MG PO (10:24)
[2020-09-27] MEDS: SODIUM CHLORIDE 0.9% IV 250 ML 30 ML IV CONT (13:24)
--- NOTE | 2020-09-27 15:23 | WPDGICN ---
Assessment and Plan Assessment and plan (1) Acute on chronic blood loss anemia: Code(s): D62 - Acute posthemorrhagic anemia Status: Acute Assessment and Plan: he is not taking ppi, history of non-compliance will repeat EGD again but also colonoscopy since never had one cardiology stated that he is poor candidate for anticoagulation given non-compliance and recent history of GIB (2) NSTEMI (non-ST elevated myocardial infarction): Code(s): I21.4 - Non-ST elevation (NSTEMI) myocardial infarction Status: Acute Assessment and Plan: medical management (3) Duodenal ulcer: Code(s): K26.9 - Duodenal ulcer, unspecified as acute or chronic, without hemorrhage or perforation Status: Acute Assessment and Plan: continue using ppi (4) Tobacco dependence: Code(s): F17.200 - Nicotine dependence, unspecified, uncomplicated Status: Chronic Assessment and Plan: quit smoking (5) Colon cancer screening: Code(s): Z12.11 - Encounter for screening for malignant neoplasm of colon Status: Acute Assessment and Plan: proceed with colonoscopy tomorrow GI Consult Note Consult date/time: 09/27/20 15:23 Reason for consult: duodenal ulcer, acute on chronic blood loss anemia HPI: aNin Hurley is a 50 year old male who I met during recent hospitalization 06/2020 when he presented with symptomatic anemia and UGIB, EGD large non-bleeding duodenal ulcer, erosive esophagitis and small gastric ulcers- did not have to treat endoscopically. He was discharged with instructions to take PPI but he has not been using, says that lost prescription. He also has CAD s/p stents placed in 2018. He came with midsternal chest pressure with radiation towards his right shoulder. ER treatment with ASA, nitro, morphine, and a GI cocktail. CTA chest reviewed and negative. Initial troponin was negative then up to 1, cardiology on board. EKG did not demonstrate and ST segment elevation. He never had a colonoscopy, denies recent melena. Review of Systems Constitutional: Constitutional: Denies headache(s) and Denies weakness Eyes: Eyes: Denies blurry vision ENT: Reports Normal hearing present, Denies headache(s) and Denies neck pain Cardiovascular: Cardiovascular: Reports chest pain and Denies dyspnea Respiratory: Respiratory: Denies dyspnea Gastrointestinal: Gastrointestinal: Denies melena Genitourinary: Genitourinary: Denies dysuria Musculoskeletal: Musculoskeletal: Denies neck pain Integumentary/Breasts: Skin/Breast: Denies dry skin Neurologic: Reports Normal hearing present, Denies headache(s) and Denies weakness Psychiatric: Psychiatric: Denies anxiety Endocrine: Endocrine: Denies change in body appearance Hematologic/Lymphatic: Hematologic/Lymphatic: Denies easy bleeding Allergic/Immunologic: Allergic/Immunologic: Denies urticaria PMFSH Past Medical History Medical History Acute blood loss anemia Coronary artery disease With history of [place] in 2018 status post stent x2, done at [facility]. Duodenal ulcer Gastroesophageal reflux disease Kidney stones Narcolepsy Peptic ulcer disease On EGD in December [address] Aguilar. Reflux esophagitis On EGD in December [address] Aguilar. Tobacco abuse Surgical History Surgical History History of heart artery stent (~2018) X2. Family History Family History Mother No problems noted. Father Heart attack COPD (chronic obstructive pulmonary disease) Hypertension Social History Social History Social History: The patient is single and is currently living in a local motel. 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 He began smoking at age 15 and smokes about a half a pack of cigaret
--- NOTE | 2020-09-27 15:55 | PM.IMPN ---
Progress Note: A&P Assessment and Plan (1) Chest pain: Qualifiers: Chest pain type: unspecified Qualified Code(s): R07.9 - Chest pain, unspecified Code(s): R07.9 - Chest pain, unspecified Status: Acute Assessment and Plan: 09/27/20 15:55 The patient has been placed in observation status. Telemetry, NPO. Trend troponin. Check another EKG now. Check lipase which hasn't been done yet. r/o ACS, dyspepsia, PUD, GERD, musculoskeletal pain. Continue nitro, morphine for chest pain. Cardiology has been consulted by ER provider. Continue ASA therapy and beta migel. Continue Cardiology recommendations. 09/26 patient is a 50-year-old male with history of coronary artery disease he had a stent placed in 2018 at the [facility], patient has not seen by his paper machine tender or primary care for last 2 years per patient and currently is not taking any medication, patient presented emergency department with a complaint of persistent chest pain and elevated tropes patient is seen by paper machine tender suspect patient has a non STEMI patient was started on metoprolol, aspirin, nitrite, and morphine to control his pain, patient is seen by paper machine tender is scheduled to have cardiac catheterization later today and will follow-up, patient does have history of duodenal ulcer which is healing and there is no recent bleeding. 09/27 patient again seen by paper machine tender patient is in need of cardiac catheterization however because of his GI bleed and noncompliance his high risk or bleeding, patient patient has a persistent anemia will transfuse 1 unit of pack RBC, will consult GI for further recommendation, currently patient denies any chest pain shortness of breath palpitation fever or chills, denies any abdominal pain nausea or vomiting or bleeding. (2) Normocytic anemia: Code(s): D64.9 - Anemia, unspecified Status: Chronic Assessment and Plan: Chronic anemia. The patient has a history of GI bleeding. we will check FOBT, monitor H/H, transfuse prn. (3) Gastroesophageal reflux disease: Qualifiers: Esophagitis presence: esophagitis presence not specified Qualified Code(s): K21.9 - Gastro-esophageal reflux disease without esophagitis Code(s): K21.9 - Gastro-esophageal reflux disease without esophagitis Status: Chronic Assessment and Plan: Continue protonix. (4) Dyslipidemia: Code(s): E78.5 - Hyperlipidemia, unspecified Status: Chronic Assessment and Plan: Check lipid panel. continue lipitor. (5) Tobacco dependence: Code(s): F17.200 - Nicotine dependence, unspecified, uncomplicated Status: Chronic Assessment and Plan: I have counseled the patient regarding tobacco cessation for 4 minutes. He verbalized his agreement and understanding of same. Subjective Date/time seen: 09/27/20 15:55 The patient has been placed in observation status. Telemetry, NPO. Trend troponin. Check another EKG now. Check lipase which hasn't been done yet. r/o ACS, dyspepsia, PUD, GERD, musculoskeletal pain. Continue nitro, morphine for chest pain. Cardiology has been consulted by ER provider. Continue ASA therapy and beta migel. Continue Cardiology recommendations. 09/26 patient is a 50-year-old male with history of coronary artery disease he had a stent placed in 2018 at the [facility], patient has not seen by his paper machine tender or primary care for last 2 years per patient and currently is not taking any medication, patient presented emergency department with a complaint of persistent chest pain and elevated tropes patient is seen by paper machine tender suspect patient has a non STEMI patient was started on metoprolol, aspirin, nitrite, and morphine to control his pain, patient is seen by paper machine tender is scheduled to have cardiac catheterization later today and will follow-up, patient does have history of duodenal ulcer which is healing and there is no recent bleeding.
[2020-09-27] MEDS: PEG (High)/E-LYTE SOLN 4,000 ML BTL 4000 ML PO (17:23)
[2020-09-27] MEDS: BISACODYL 5 MG TABLET EC 20 MG PO (17:23)
[2020-09-28] VITALS (17 sets, daily range): BP systolic 101–128; BP diastolic 56–79; PULSE 54–70; RESP 16–21; TEMP 36.2–36.9; O2SAT 95–100
[2020-09-28] MEDS: MAGNESIUM CITRATE 300 ML BTL PO (03:52)
[2020-09-28 05:56] LABS: Hematocrit 31.3 % (42.0-52.0); Hemoglobin 9.3 g/dL (14.0-18.0); Mean Corpuscular HGB Conc 29.7 g/dl (32-36); Mean Platelet Volume 10.9 fl (7.4-10.4); Platelet Count Result 333 k/mm3 (150-375); Red Blood Count 4.23 M/mm3 (4.6-6.20); Red Cell Distribution Width 16.7 % (11.5-14.5); White Blood Count 6.7 K/mm3 (4.5-10.0)
[2020-09-28 06:25] LABS: Anion Gap 7 mmol/L (8-16); Blood Urea Nitrogen 11 mg/dL (9-20); Calcium 8.2 mg/dL (8.4-10.2); Carbon Dioxide 28 mmol/L (22-30); Chloride 105 mmol/L (98-107); Estimated CRCL calculation 88 ml/min; Estimated Glomerular Filt Rate > 60; Glucose 103 mg/dL (75-110); Potassium 4.3 mmol/L (3.4-5.0); Sodium 140 mmol/L (137-145)
--- NOTE | 2020-09-28 10:35 | PM.PNCARD ---
Progress Note: A&P Assessment and Plan (1) CAD (coronary artery disease): Qualifiers: Coronary Disease-Associated Artery/Lesion type: [place] artery [place] vs. transplanted heart: [place] heart Associated angina: without angina Qualified Code(s): I25.10 - Atherosclerotic heart disease of [place] coronary artery without angina pectoris Code(s): I25.10 - Atherosclerotic heart disease of [place] coronary artery without angina pectoris Status: Acute Assessment and Plan: DAPT, beta-migel, statin (2) Tobacco dependence: Code(s): F17.200 - Nicotine dependence, unspecified, uncomplicated Status: Chronic Assessment and Plan: Tobacco abuse counseling was again done today. Patient states that he will work on it. (3) NSTEMI (non-ST elevated myocardial infarction): Code(s): I21.4 - Non-ST elevation (NSTEMI) myocardial infarction Status: Acute Assessment and Plan: Clinical presentation consistent with non ST elevation myocardial infarction. Unfortunately, patient is currently not a candidate for early invasive strategy due to severe anemia, noncompliance with medical regimen and outpatient follow-up. He has history of GI bleed, and is severely anemic. It is uncertain if patient is currently actively bleeding. Will await the results of the endoscopy today for further determination regarding his CAD/ischemic workup. (4) Hyperlipemia: Code(s): E78.5 - Hyperlipidemia, unspecified Status: Acute Assessment and Plan: On statin (5) Ischemic cardiomyopathy: Code(s): I25.5 - Ischemic cardiomyopathy Status: Acute Assessment and Plan: Will start low-dose losartan 12.5 mg daily Subjective Date/time seen: 09/28/20 10:35 Interval history: 50-year-old man with history of coronary artery disease with previous cyst PCI presenting with chest pain evidence of acute coronary syndrome with elevation of troponin as detailed in Consul known. Patient seen in the room prior to considering bringing him to the director of cardiac cath lab for angiogram in the setting of severe anemia. The entire chart was reviewed and the patient was seen. Patient was in the hospital recently with significant GI bleeding hemoglobin as low as 3.5. Upper endoscopy demonstrated duodenal ulcers, gastric ulcers and erosive esophagitis. Apparently he was not compliant with medication as he was taking no medication for his ulcer disease upon arrival to the hospital. Patient is at substantially higher risk for angiographic assessment of his coronary disease and interventional treatment since he is significantly anemic at baseline has documented ulcer disease which is not been treated effectively presumably because of noncompliance and certainly this does substantially raise the risk of interventional procedures. Furthermore he has been taking no medication for is coronary disease so a high risk intervention would be more appropriate if he is documented as failing a reasonable attempt at medical treatment. For this reason I told the patient it would be my decision to forego angiography today since he is not being treated with any medication for his coronary disease he is significantly anemic and in this setting is a substantially higher risk for catheterization and interventional procedures. Date of service 09/27/2020-patient denies any recurrent chest discomfort. He denies shortness of breath, palpitations or dizziness. As per staff, patient has been little combative and wants to leave the hospital. Date of service 09/28/2020: Denies any chest pain or shortness of breath. He is scheduled for a endoscopy today. Review of Systems Review of Systems: All systems reviewed & are unremarkable except as noted in HPI and below Constitutional: Constitutional: Denies fatigue, Denies headache(s) and Denies weakness Eyes: Eyes: Denies blurry vision ENT: Reports Normal hearing present, Denies headache(s) and De
[2020-09-28] MEDS: LACTATED RINGERS 1,000 ML 150 ML IV CONT (11:12)
--- NOTE | 2020-09-28 11:45 | WPDANESEPPF ---
Anes - Initial Pre Proc Eval Procedure: Operation Date: 09/26/20 14:30 Proposed Procedures p Left Heart Cath(Right) - Nain Carter MD Operation Date: 09/28/20 12:45 Proposed Procedures p Esophagogastroduodenoscopy & Colonoscopy - Vipul Aguilar MD Date/Time: 09/28/20 11:45 Surgeon: Mateo Latham MD Pre Op Diagnosis: Chest Pain Patient Data Age: 50 Gender: M Height: 5 ft 9 in Weight: 89.5 kg Last Vital Signs Temp 36.9 C 09/28/20 11:18 Pulse 60 09/28/20 11:18 Resp 18 09/28/20 11:18 BP 125/76 09/28/20 11:18 Pulse Ox 97 09/28/20 11:18 Allergies Allergy/AdvReac Type Severity Reaction Status Date / Time No Known Allergies Allergy Mild Verified 09/28/20 11:15 Home Medications Medication Instructions Recorded Confirmed Type No Home Medications 09/26/20 09/26/20 History Laboratory Tests 09/27/20 09/28/20 09/28/20 09:13 05:03 05:03 WBC 6.7 K/mm3 K/mm3 (4.5-10.0) RBC 4.23 M/mm3 L M/mm3 (4.6-6.20) Hgb 9.3 g/dL L g/dL (14.0-18.0) Hct 31.3 % L % (42.0-52.0) MCV 74.0 fl L fl (80-100) MCH 22.0 pg L pg (26-34) MCHC 29.7 g/dl L g/dl (32-36) RDW 16.7 % H % (11.5-14.5) Plt Count 333 k/mm3 k/mm3 (150-375) MPV 10.9 fl H fl (7.4-10.4) Sodium 140 mmol/L mmol/L (137-145) Potassium 4.3 mmol/L mmol/L (3.4-5.0) Chloride 105 mmol/L mmol/L (98-107) Carbon Dioxide 28 mmol/L mmol/L (22-30) Anion Gap 7 mmol/L L mmol/L (8-16) BUN 11 mg/dL mg/dL (9-20) Creatinine 0.90 mg/dL mg/dL (0.7-1.3) Estim Creat Clear Calc 88 ml/min ml/min Estimated GFR > 60 (59 - ) Glucose 103 mg/dL mg/dL (75-110) Calcium 8.2 mg/dL L mg/dL (8.4-10.2) Blood Type O Positive Antibody Screen Negative Crossmatch See Detail Patient hx anesthesia problems: none Family hx anesthesia problems: none PMFSH Past Medical History Medical History Acute blood loss anemia Acute on chronic blood loss anemia Coronary artery disease With history of [place] in 2018 status post stent x2, done at [facility]. Duodenal ulcer Gastroesophageal reflux disease Ischemic cardiomyopathy Kidney stones Narcolepsy Peptic ulcer disease On EGD in December [address] Aguilar. Reflux esophagitis On EGD in December [address] Aguilar. Tobacco abuse Surgical History Surgical History History of heart artery stent (~2018) X2. Family History Family History Mother No problems noted. Father Heart attack COPD (chronic obstructive pulmonary disease) Hypertension Social History Social History Social History: The patient is single and is currently living in a local motel. 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 He began smoking at age 15 and smokes about a half a pack of cigarettes per day and also chews tobacco. He drank heavily but quit in 2012 when he began having problems with his stomach. Previous marijuana use. He designates his mother, Yolanda Hurley, as his surrogate decision maker and he wishes to be a full code. Smoking packs per day: 1 Smoking cigarettes per day: 20.0 Years smoked: 30 Smoking pack-years: 30.00 Smoking status: Current every day smoker Tobacco type: cigarettes Smokeless tobacco user: chewing tobacco Alcohol intake: never Substance use: never Substance use type: does not use Gender identity (if verbalized by the patient): Male Spiritual care concerns: No Anes - Eval Final PreProcedure Day of Procedure 09/28/20 11:45 Patient weight: overweight Heart:
[2020-09-28] MEDS: BENZOCAINE (*SP) 60 ML SPRAY CAN (HURRICAINE) 1 SPRAY MUCOUS MEM (12:26)
[2020-09-28] MEDS: ROSUVASTATIN 10 MG TABLET 20 MG PO (15:01)
[2020-09-28] MEDS: ISOSORBIDE MONONITRATE 30 MG TAB.ER.24H PO (15:02)
[2020-09-28] MEDS: ASPIRIN 81 MG ENTERIC TABLET PO (15:02)
[2020-09-28] MEDS: CLOPIDOGREL BISULFATE 75 MG TABLET PO (15:02)
--- NOTE | 2020-09-28 16:13 | PM.IMPN ---
Progress Note: A&P Assessment and Plan (1) Chest pain: Qualifiers: Chest pain type: unspecified Qualified Code(s): R07.9 - Chest pain, unspecified Code(s): R07.9 - Chest pain, unspecified Status: Acute Assessment and Plan: 09/28/20 16:13 The patient has been placed in observation status. Telemetry, NPO. Trend troponin. Check another EKG now. Check lipase which hasn't been done yet. r/o ACS, dyspepsia, PUD, GERD, musculoskeletal pain. Continue nitro, morphine for chest pain. Cardiology has been consulted by ER provider. Continue ASA therapy and beta migel. Continue Cardiology recommendations. 09/26 patient is a 50-year-old male with history of coronary artery disease he had a stent placed in 2018 at the [facility], patient has not seen by his classified advertising supervisor or primary care for last 2 years per patient and currently is not taking any medication, patient presented emergency department with a complaint of persistent chest pain and elevated tropes patient is seen by classified advertising supervisor suspect patient has a non STEMI patient was started on metoprolol, aspirin, nitrite, and morphine to control his pain, patient is seen by classified advertising supervisor is scheduled to have cardiac catheterization later today and will follow-up, patient does have history of duodenal ulcer which is healing and there is no recent bleeding. 09/27 patient again seen by classified advertising supervisor patient is in need of cardiac catheterization however because of his GI bleed and noncompliance his high risk or bleeding, patient patient has a persistent anemia will transfuse 1 unit of pack RBC, will consult GI for further recommendation, currently patient denies any chest pain shortness of breath palpitation fever or chills, denies any abdominal pain nausea or vomiting or bleeding. 09/28 today patient was taken to GI lab and had a EGD and colonoscopy did not show any source of bleeding, and it was essentially normal, patient hemoglobin is stable, patient with history of coronary artery disease with 2 stents presented with non STEMI seen by classified advertising supervisor recommending cardiac catheterization tomorrow as patient GI issue are stable, follow-up on cath and further recommendation to follow, patient is clinically stable denies any chest pain shortness of breath, abdominal pain nausea, vomiting or bleeding (2) Normocytic anemia: Code(s): D64.9 - Anemia, unspecified Status: Chronic Assessment and Plan: Chronic anemia. The patient has a history of GI bleeding. we will check FOBT, monitor H/H, transfuse prn. (3) Gastroesophageal reflux disease: Qualifiers: Esophagitis presence: esophagitis presence not specified Qualified Code(s): K21.9 - Gastro-esophageal reflux disease without esophagitis Code(s): K21.9 - Gastro-esophageal reflux disease without esophagitis Status: Chronic Assessment and Plan: Continue protonix. (4) Dyslipidemia: Code(s): E78.5 - Hyperlipidemia, unspecified Status: Chronic Assessment and Plan: Check lipid panel. continue lipitor. (5) Tobacco dependence: Code(s): F17.200 - Nicotine dependence, unspecified, uncomplicated Status: Chronic Assessment and Plan: I have counseled the patient regarding tobacco cessation for 4 minutes. He verbalized his agreement and understanding of same. Subjective Date/time seen: 09/28/20 16:13 The patient has been placed in observation status. Telemetry, NPO. Trend troponin. Check another EKG now. Check lipase which hasn't been done yet. r/o ACS, dyspepsia, PUD, GERD, musculoskeletal pain. Continue nitro, morphine for chest pain. Cardiology has been consulted by ER provider. Continue ASA therapy and beta migel. Continue Cardiology recommendations. 09/26 patient is a 50-year-old male with history of coronary artery disease he had a stent placed in 2018 at the [facility], patient has not seen by his classified advertising supervisor or primary care fo
[2020-09-28] MEDS: METOPROLOL TARTRATE 12.5 MG TABLET PO (20:11)
[2020-09-28] MEDS: PANTOPRAZOLE 40 MG TABLET PO (20:12)
[2020-09-29] VITALS (26 sets, daily range): BP systolic 110–134; BP diastolic 52–90; PULSE 52–108; RESP 13–20; TEMP 35.9–36.8; O2SAT 96–100
[2020-09-29 05:43] LABS: Hematocrit 33.1 % (42.0-52.0); Hemoglobin 9.9 g/dL (14.0-18.0); Mean Corpuscular HGB Conc 29.9 g/dl (32-36); Mean Corpuscular Hemoglobin 22.6 pg (26-34); Mean Corpuscular Volume 75.6 fl (80-100); Mean Platelet Volume 10.7 fl (7.4-10.4); Platelet Count Result 326 k/mm3 (150-375); Red Blood Count 4.38 M/mm3 (4.6-6.20); Red Cell Distribution Width 16.6 % (11.5-14.5); White Blood Count 8.5 K/mm3 (4.5-10.0)
[2020-09-29 05:52] LABS: Anion Gap 6 mmol/L (8-16); Blood Urea Nitrogen 13 mg/dL (9-20); Calcium 8.8 mg/dL (8.4-10.2); Carbon Dioxide 27 mmol/L (22-30); Chloride 104 mmol/L (98-107); Estimated CRCL calculation 98 ml/min; Estimated Glomerular Filt Rate > 60; Glucose 102 mg/dL (75-110); Potassium 4.2 mmol/L (3.4-5.0); Sodium 137 mmol/L (137-145)
--- NOTE | 2020-09-29 07:46 | WPDANESPN ---
Anes - Prog Note Post-Op Date/Time: 09/29/20 07:46 Cardiovascular status: normal Respiratory status: normal Airway patency: baseline Mental status: baseline Post-Op hydration status: normal Vital Signs: Last Vital Signs Temp 36.7 C 09/29/20 04:00 Pulse 55 L 09/29/20 06:00 Resp 20 09/29/20 04:00 BP 128/81 09/29/20 04:00 Pulse Ox 97 09/29/20 04:00 Pain Score (VAS): 0 I/O: Intake & Output 09/28/20 09/28/20 09/29/20 15:59 23:59 07:59 Intake Total 580 600 300 Output Total 600 650 Balance 580 0 -350 Laboratory Tests 09/29/20 04:34 09/29/20 04:34 09/29/20 09/29/20 04:34 04:34 WBC 8.5 RBC 4.38 L Hgb 9.9 L Hct 33.1 L MCV 75.6 L MCH 22.6 L MCHC 29.9 L RDW 16.6 H Plt Count 326 MPV 10.7 H Sodium 137 Potassium 4.2 Chloride 104 Carbon Dioxide 27 Anion Gap 6 L BUN 13 Creatinine 0.80 Estim Creat Clear Calc 98 Estimated GFR > 60 Glucose 102 Calcium 8.8 Post-procedural complaints: none Patient Feedback: Patient satisfied with anesthetic care.
[2020-09-29] MEDS: ISOSORBIDE MONONITRATE 30 MG TAB.ER.24H PO (09:06)
[2020-09-29] MEDS: METOPROLOL TARTRATE 12.5 MG TABLET PO ×2 (09:06→20:52)
[2020-09-29] MEDS: PANTOPRAZOLE 40 MG TABLET PO ×2 (09:07→20:53)
[2020-09-29] MEDS: ASPIRIN 81 MG ENTERIC TABLET PO (09:07)
[2020-09-29] MEDS: CLOPIDOGREL BISULFATE 75 MG TABLET PO (09:07)
[2020-09-29] MEDS: ROSUVASTATIN 10 MG TABLET 20 MG PO (09:08)
[2020-09-29] MEDS: LOSARTAN POTASSIUM 12.5 MG TABLET PO (09:19)
--- NOTE | 2020-09-29 11:13 | WPDHPUPDATE1 ---
History and Physical Update Update Date/Time: 09/29/20 11:13 History and Physical has been reviewed, including an updated exam of the patient. There are NO changes in the patient's condition. Risks, benefits, and alternatives have been discussed and questions answered. Patient agrees to proceed with procedure.
--- NOTE | 2020-09-29 11:14 | WPDMODSED ---
Moderate Sedation Note-Pt Data Patient Data Allergies Allergy/AdvReac Type Severity Reaction Status Date / Time No Known Allergies Allergy Mild Verified 09/28/20 11:15 Home Medications Medication Instructions Recorded Confirmed Type No Home Medications 09/26/20 09/26/20 History Current Medications: Active Medications Aspirin (Aspirin 81 Mg Enteric Tablet) 81 mg PO [facility] Last Admin: 09/29/20 09:07 Dose: 81 mg Documented by: Clopidogrel Bisulfate (Clopidogrel Bisulfate 75 Mg Tablet) 75 mg PO [facility] Last Admin: 09/29/20 09:07 Dose: 75 mg Documented by: Isosorbide Mononitrate (Isosorbide Mononitrate 30 Mg Tab.Er.24h) 30 mg PO [facility] Last Admin: 09/29/20 09:06 Dose: 30 mg Documented by: Losartan Potassium (Losartan Potassium 12.5 Mg Tablet) 12.5 mg PO [facility] Last Admin: 09/29/20 09:19 Dose: 12.5 mg Documented by: Metoprolol Tartrate (Metoprolol Tartrate 12.5 Mg Tablet) 12.5 mg PO Q12HR [facility] Last Admin: 09/29/20 09:06 Dose: 12.5 mg Documented by: Nitroglycerin (Nitroglycerin Sl 0.4 Mg Tablet) 0.4 mg SUBLINGUAL Q5MIN PRN PRN Reason: Chest Pain Last Admin: 09/26/20 09:07 Dose: 0.4 mg Documented by: Ondansetron HCl (Ondansetron Inj 4 Mg/2 Ml Vial) 4 mg IV PUSH Q4H PRN PRN Reason: Nausea Pantoprazole Sodium (Pantoprazole 40 Mg Tablet) 40 mg PO Q12HR [facility] Last Admin: 09/29/20 09:07 Dose: 40 mg Documented by: Rosuvastatin Calcium (Rosuvastatin 10 Mg Tablet) 20 mg PO [facility] Last Admin: 09/29/20 09:08 Dose: 20 mg Documented by: Sedation/Anesthesia: No previous sedation/anesthesia problems (including family history). [facility] Past Medical History Medical History Acute blood loss anemia Acute on chronic blood loss anemia Coronary artery disease With history of UT in 2018 status post stent x2, done at [facility]. Duodenal ulcer Gastroesophageal reflux disease Ischemic cardiomyopathy Kidney stones Narcolepsy Peptic ulcer disease On EGD in December [address] Aguilar. Reflux esophagitis On EGD in December [address] Aguilar. Tobacco abuse Surgical History Surgical History History of heart artery stent (~2018) X2. Family History Family History Mother No problems noted. Father Heart attack COPD (chronic obstructive pulmonary disease) Hypertension Social History Social History Social History: The patient is single and is currently living in a local motel. 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 He began smoking at age 15 and smokes about a half a pack of cigarettes per day and also chews tobacco. He drank heavily but quit in 2012 when he began having problems with his stomach. Previous marijuana use. He designates his mother, Yolanda Hurley, as his surrogate decision maker and he wishes to be a full code. Smoking packs per day: 1 Smoking cigarettes per day: 20.0 Years smoked: 30 Smoking pack-years: 30.00 Smoking status: Current every day smoker Tobacco type: cigarettes Smokeless tobacco user: chewing tobacco Alcohol intake: never Substance use: never Substance use type: does not use Gender identity (if verbalized by the patient): Male Spiritual care concerns: No Mod Sed Physical Exam Physical Exam Pre Procedural Exam: Normal: Appearance, Eyes, Ears, Nose, Neck, Throat, Airway, Lungs, Heart Size, Heart Rate, Heart Rhythm, Neuro Exam, Abdomen, Liver, Kidneys, Spleen, Breasts, Genitalia, Extremities and Skin Hours since solid foods: 8 Hours since liquid intake: 8 Internal Medicine - PN: Obj Da Vital Signs Vital Signs: Vital Signs - 24 hr 09/28/20 11:18 09/28/20 12:43 09/28/20 12:53 Temperature 36.9 C Pulse Rate 60 65 64 Respiratory Rate 18 20 21 H Blood Pressure 125/76 101/61 104/64 Pul
--- NOTE | 2020-09-29 13:02 | WPDCARDPROC ---
Cardiac Cath Procedure Note Date of procedure:: 09/29/20 Performing physician:: Cornelio Hill MD date of service September 29, 2020 Indication:: NSTEMI Brief clinical history:: 50-YEAR-OLD PATIENT WITH PAST MEDICAL HISTORY OF GI BLEEDING, bifurcating LAD, diagonal stent 2079 at [facility] using 2.5 diameter stent in the diagonal and 3 mm stent in the LAD that was post dilated to 3.5. He presents to hospital with chest pain and elevated troponins. Procedure Procedure performed:: 1-Moderate sedation that started at 11:38 a.m.and ended at 1300 p.m.using 2mg of Versed and 75mcg fentanyl. The registered nurse was jez brown 2-Selective left and right coronary angiogram. 3-Left heart catheterization with measurement of LVEDP and measurement of gradient across aortic valve. 4- balloon angioplasty of ostial diagonal branch using 2.5 x 15 balloon and then using 3 0 x 15 noncompliant. 5- Balloon angioplasty of the LAD stent using 3.5 x 8 noncompliant Balloon. 4-Right common femoral arterial angiogram. 5-Deployment of 6 Palestinian Angio-Seal. Sedation/Medication given:: Moderate sedation. Access site:: Right common femoral artery. Estimated blood loss:: 10cc Procedure note:: After informed consent patient was brought in to high density press laborer with the was draped and prepped in usual manner. Moderate sedation was given and the right groin was infiltrated using 1% lidocaine. Five Palestinian sheath was obtained using micropuncture needle and the modified Seldinger technique. Selective left coronary angiogram was done using JL4 catheter with the tip of the catheter placed in the left main coronary artery. Selective right coronary angiogram was done using JR4 catheter with the tip of the catheter placed to the right coronary artery. After that 5 Palestinian pigtail catheter was advanced across the aortic valve into the left ventricle with measurement of LVEDP and measurement of gradient across aortic valve. Right common femoral arterial angiogram was done. after the 6 Palestinian guide catheter CLS 3.5 was engaged in the left main. Whisper wire was advanced to the diagonal branch. Then luge coronary wire was advanced to distal LAD. We used 2.5 by 15 noncompliant balloon and inflated In the ostium diagonal stent under 24 atmospheres for 25 seconds. then after that we used 3 x 15 noncompliant balloon and we inflated in the ostium of the diagonal branch under nominal pressure for 25 seconds. subsequently we took 3.5 x 8 noncompliant balloon and inflated it in the proximal portion of the LAD stent under normal pressure for 25 seconds. Then after that we did kissing balloon angioplasty in the diagonal branch using 2.5 x 15 balloon and in the LAD using 3.5 x 8 noncompliant balloon Under nominal pressure for 25 seconds. then after that 6 Palestinian Angio-Seal deployed in the right groin. Findings:: 1- left coronary artery is a large artery that divides into large LAD, large circumflex artery. Left main is has minimal irregularities. 2- left anterior descending artery is a large artery that runs and wraps around the apex. Has a patent stent in the LAD however that ostium of the diagonal stent has 95% stenosis. its bifurcating stenting. 3- leftcircumflex artery is a large artery has minimal irregularities. In the mid segment large OM1 branch that has 3 branches and has minimal irregularities. 4- right coronary artery is Large artery and dominant. There is proximal lesion of about 50% followed by another lesion at the junction of the proximal and mid segment about 80% and there is a lesion about 70% at the junction of the mid to distal segment. 5- LVEDP was 7 mm Hg and no gradient across aortic valve. 6- opening arterial pressure was 120/80 and closing pressure was 130/80 7- right femoral artery angiogram shows no significant disease in the right common femoral artery. Conclusion:: successful balloon angioplasty in kissing fashion of the ostial diagonal branch and proximal edge of the stent
--- NOTE | 2020-09-29 13:19 | ECG_ITS ---
Measurements Intervals [place] Rate: 49 P: 56 [place]: 147 QRS: -1 QRSD: 117 T: 111 QT: 468 QTc: 425 Interpretive Statements SINUS BRADYCARDIA POSSIBLE LEFT ATRIAL ENLARGEMENT T WAVE ABNORMALITY IN HIGH LATERAL LEADS- CONSIDER ISCHEMIA ABNORMAL ECG Electronically Signed On 09-29-2020 13:41:44 [employer]IONICS SUPERVISOR by Chidi Hauser D.O.
--- NOTE | 2020-09-29 14:37 | SUR.PHASEII ---
Patient transferred to IMU 202. Report given to Camryn ESPINO. Site and pulses assessed at bedside by both RNs.
[2020-09-29] MEDS: SODIUM CHLORIDE 0.9% IV 1,000 ML 125 ML IV CONT (16:27)
--- NOTE | 2020-09-29 16:43 | PM.IMPN ---
Progress Note: A&P Assessment and Plan (1) Chest pain: Qualifiers: Chest pain type: unspecified Qualified Code(s): R07.9 - Chest pain, unspecified Code(s): R07.9 - Chest pain, unspecified Status: Acute Assessment and Plan: 09/29/20 16:43 The patient has been placed in observation status. Telemetry, NPO. Trend troponin. Check another EKG now. Check lipase which hasn't been done yet. r/o ACS, dyspepsia, PUD, GERD, musculoskeletal pain. Continue nitro, morphine for chest pain. Cardiology has been consulted by ER provider. Continue ASA therapy and beta migel. Continue Cardiology recommendations. 09/26 patient is a 50-year-old male with history of coronary artery disease he had a stent placed in 2018 at the [facility], patient has not seen by his core shaper sides or primary care for last 2 years per patient and currently is not taking any medication, patient presented emergency department with a complaint of persistent chest pain and elevated tropes patient is seen by core shaper sides suspect patient has a non STEMI patient was started on metoprolol, aspirin, nitrite, and morphine to control his pain, patient is seen by core shaper sides is scheduled to have cardiac catheterization later today and will follow-up, patient does have history of duodenal ulcer which is healing and there is no recent bleeding. 09/27 patient again seen by core shaper sides patient is in need of cardiac catheterization however because of his GI bleed and noncompliance his high risk or bleeding, patient patient has a persistent anemia will transfuse 1 unit of pack RBC, will consult GI for further recommendation, currently patient denies any chest pain shortness of breath palpitation fever or chills, denies any abdominal pain nausea or vomiting or bleeding. 09/28 today patient was taken to GI lab and had a EGD and colonoscopy did not show any source of bleeding, and it was essentially normal, patient hemoglobin is stable, patient with history of coronary artery disease with 2 stents presented with non STEMI seen by core shaper sides recommending cardiac catheterization tomorrow as patient GI issue are stable, follow-up on cath and further recommendation to follow, patient is clinically stable denies any chest pain shortness of breath, abdominal pain nausea, vomiting or bleeding, 09/29 today patient was taken to the cardiac hospital laboratory technician and had successful balloon angioplasty of of the ostial diagonal branch and proximal edge of the stent in the LAD. This was done to treat ostial diagonal branch that was 95%. Also also right coronary artery showed significant stenosis which will be addressed later. Patient states feeling better denies any chest pain shortness of breath dizziness, denies any abdominal pain nausea vomiting or bleeding, patient hemoglobin remains stable, if clinically stable will discharge the patient home tomorrow (2) Normocytic anemia: Code(s): D64.9 - Anemia, unspecified Status: Chronic Assessment and Plan: Chronic anemia. The patient has a history of GI bleeding. we will check FOBT, monitor H/H, transfuse prn. (3) Gastroesophageal reflux disease: Qualifiers: Esophagitis presence: esophagitis presence not specified Qualified Code(s): K21.9 - Gastro-esophageal reflux disease without esophagitis Code(s): K21.9 - Gastro-esophageal reflux disease without esophagitis Status: Chronic Assessment and Plan: Continue protonix. (4) Dyslipidemia: Code(s): E78.5 - Hyperlipidemia, unspecified Status: Chronic Assessment and Plan: Check lipid panel. continue lipitor. (5) Tobacco dependence: Code(s): F17.200 - Nicotine dependence, unspecified, uncomplicated Status: Chronic Assessment and Plan: I have counseled the patient regarding tobacco cessation for 4 minutes. He verbalized his agreement and understanding of same. Subjective Date/time seen: 09/29/20 16:43 The
[2020-09-30] VITALS (7 sets, daily range): BP systolic 98–112; BP diastolic 55–59; PULSE 56–73; RESP 16–18; TEMP 35.9–36.6; O2SAT 99–100
[2020-09-30 05:32] LABS: Hematocrit 32.3 % (42.0-52.0); Hemoglobin 9.4 g/dL (14.0-18.0); Mean Corpuscular HGB Conc 29.1 g/dl (32-36); Mean Corpuscular Hemoglobin 21.8 pg (26-34); Mean Corpuscular Volume 74.9 fl (80-100); Mean Platelet Volume 10.4 fl (7.4-10.4); Platelet Count Result 336 k/mm3 (150-375); Red Blood Count 4.31 M/mm3 (4.6-6.20); Red Cell Distribution Width 16.7 % (11.5-14.5); White Blood Count 7.4 K/mm3 (4.5-10.0)
[2020-09-30 05:46] LABS: Anion Gap 6 mmol/L (8-16); Blood Urea Nitrogen 15 mg/dL (9-20); Calcium 8.5 mg/dL (8.4-10.2); Carbon Dioxide 26 mmol/L (22-30); Chloride 106 mmol/L (98-107); Estimated CRCL calculation 88 ml/min; Estimated Glomerular Filt Rate > 60; Glucose 120 mg/dL (75-110); Potassium 3.7 mmol/L (3.4-5.0); Sodium 138 mmol/L (137-145)
[2020-09-30] MEDS: METOPROLOL TARTRATE 12.5 MG TABLET PO (08:52)
[2020-09-30] MEDS: CLOPIDOGREL BISULFATE 75 MG TABLET PO (08:52)
[2020-09-30] MEDS: ISOSORBIDE MONONITRATE 30 MG TAB.ER.24H PO (08:52)
[2020-09-30] MEDS: ASPIRIN 81 MG ENTERIC TABLET PO (08:52)
[2020-09-30] MEDS: PANTOPRAZOLE 40 MG TABLET PO (08:52)
[2020-09-30] MEDS: ROSUVASTATIN 10 MG TABLET 20 MG PO (08:52)
[2020-09-30] MEDS: LOSARTAN POTASSIUM 12.5 MG TABLET PO (08:52)
--- NOTE | 2020-09-30 10:55 | PM.PNCARD ---
Progress Note: A&P Additional Plan 50-year-old man with: Coronary artery disease with previous PCI admitted with acute coronary syndrome also with very difficult situation with significant anemia known gastric ulcers and recent severe GI bleeding. Patient was brought to the quality lab technician where he underwent balloon angioplasty of the diagonal/LAD which were previously stented at [facility]. He is asymptomatic of ischemia and appears to be a good candidate for discharge today. I will arrange for follow-up in the office with Dr. Arreaga of our practice. Potentially will require staged PCI of the right coronary artery if he has recurrent ischemic symptoms. At this time he is stable for discharge from my perspective Nain Carter MD [facility] Subjective Date/time seen: 09/30/20 10:55 Interval history: 50-year-old man with history of coronary artery disease with previous cyst PCI presenting with chest pain evidence of acute coronary syndrome with elevation of troponin as detailed in Consul known. Patient seen in the room prior to considering bringing him to the quality lab technician for angiogram in the setting of severe anemia. The entire chart was reviewed and the patient was seen. Patient was in the hospital recently with significant GI bleeding hemoglobin as low as 3.5. Upper endoscopy demonstrated duodenal ulcers, gastric ulcers and erosive esophagitis. Apparently he was not compliant with medication as he was taking no medication for his ulcer disease upon arrival to the hospital. Patient is at substantially higher risk for angiographic assessment of his coronary disease and interventional treatment since he is significantly anemic at baseline has documented ulcer disease which is not been treated effectively presumably because of noncompliance and certainly this does substantially raise the risk of interventional procedures. Furthermore he has been taking no medication for is coronary disease so a high risk intervention would be more appropriate if he is documented as failing a reasonable attempt at medical treatment. For this reason I told the patient it would be my decision to forego angiography today since he is not being treated with any medication for his coronary disease he is significantly anemic and in this setting is a substantially higher risk for catheterization and interventional procedures. Date of service: 09/30/2020. Patient is asymptomatic this morning and feels well. He was brought to the quality lab technician yesterday where he was found to have high-grade stenosis at the ostium of a diagonal branch of the LAD at the site of previous PCI. Underwent kissing balloon PCI of this lesion and the proximal margin of the LAD stent with a good anatomical result. He has moderate RCA disease that may or may not have to be intervened upon in the future depending on his symptomatic status and anemia. Exam Narrative: Exam Narrative: PHYSICAL EXAMINATION: GENERAL: Alert MENTAL STATUS: Angry EYES: Extraocular movements intact, pallor EARS: External ears appear normal, hearing grossly normal NOSE: Normal and patent, no discharge MOUTH: Mucous membranes moist, tongue normal NECK: Supple, no JVD CHEST: Good respiratory effort, clear to auscultation HEART: Normal rate, regular rhythm, normal S1 and S2, no audible murmurs ABDOMEN: Soft, nontender NEUROLOGICAL: Alert, oriented, normal speech, no gross motor deficits MUSCULOSKELETAL: No major deformity, no amputation EXTREMITIES: No pedal edema, no clubbing, no cyanosis SKIN: no rash on the exposed area, no cyanosis PSYCHIATRIC: Angry Const: General: comfortable and no acute distress; No confusion Orientation/consciousness: No confusion Other: Overweight white male sleeping in bed upon awakening is appropriate and responsive. HENMT: General nose exam: Normal nares present Mouth: Yes moist mucous membranes Eyes: Sclera: sclerae normal Pupils: Equal, round and reactive pupils present N
--- NOTE | 2020-09-30 12:27 | PM.DS ---
DS: Admitting Diagnosis Admitting Diagnosis Admitting Diagnosis: Chest pain DS: Discharge Diagnosis Discharge Diagnosis (1) Chest pain: Qualifiers: Chest pain type: unspecified Qualified Code(s): R07.9 - Chest pain, unspecified Code(s): R07.9 - Chest pain, unspecified Status: Acute Assessment and Plan: 09/29/20 16:43 The patient has been placed in observation status. Telemetry, NPO. Trend troponin. Check another EKG now. Check lipase which hasn't been done yet. r/o ACS, dyspepsia, PUD, GERD, musculoskeletal pain. Continue nitro, morphine for chest pain. Cardiology has been consulted by ER provider. Continue ASA therapy and beta migel. Continue Cardiology recommendations. 09/26 patient is a 50-year-old male with history of coronary artery disease he had a stent placed in 2018 at the [facility], patient has not seen by his hardener helper or primary care for last 2 years per patient and currently is not taking any medication, patient presented emergency department with a complaint of persistent chest pain and elevated tropes patient is seen by hardener helper suspect patient has a non STEMI patient was started on metoprolol, aspirin, nitrite, and morphine to control his pain, patient is seen by hardener helper is scheduled to have cardiac catheterization later today and will follow-up, patient does have history of duodenal ulcer which is healing and there is no recent bleeding. 09/27 patient again seen by hardener helper patient is in need of cardiac catheterization however because of his GI bleed and noncompliance his high risk or bleeding, patient patient has a persistent anemia will transfuse 1 unit of pack RBC, will consult GI for further recommendation, currently patient denies any chest pain shortness of breath palpitation fever or chills, denies any abdominal pain nausea or vomiting or bleeding. 09/28 today patient was taken to GI lab and had a EGD and colonoscopy did not show any source of bleeding, and it was essentially normal, patient hemoglobin is stable, patient with history of coronary artery disease with 2 stents presented with non STEMI seen by hardener helper recommending cardiac catheterization tomorrow as patient GI issue are stable, follow-up on cath and further recommendation to follow, patient is clinically stable denies any chest pain shortness of breath, abdominal pain nausea, vomiting or bleeding, 09/29 today patient was taken to the cardiac photo lab technician and had successful balloon angioplasty of of the ostial diagonal branch and proximal edge of the stent in the LAD. This was done to treat ostial diagonal branch that was 95%. Also also right coronary artery showed significant stenosis which will be addressed later. Patient states feeling better denies any chest pain shortness of breath dizziness, denies any abdominal pain nausea vomiting or bleeding, patient hemoglobin remains stable, if clinically stable will discharge the patient home tomorrow (2) Normocytic anemia: Code(s): D64.9 - Anemia, unspecified Status: Chronic Assessment and Plan: Chronic anemia. The patient has a history of GI bleeding. we will check FOBT, monitor H/H, transfuse prn. (3) Gastroesophageal reflux disease: Qualifiers: Esophagitis presence: esophagitis presence not specified Qualified Code(s): K21.9 - Gastro-esophageal reflux disease without esophagitis Code(s): K21.9 - Gastro-esophageal reflux disease without esophagitis Status: Chronic Assessment and Plan: Continue protonix. (4) Dyslipidemia: Code(s): E78.5 - Hyperlipidemia, unspecified Status: Chronic Assessment and Plan: Check lipid panel. continue lipitor. (5) Tobacco dependence: Code(s): F17.200 - Nicotine dependence, unspecified, uncomplicated Status: Chronic Assessment and Plan: I have counseled the patient regarding tobacco cessation for 4 minutes. He verbalized his agr
--- NOTE | 2020-09-30 14:37 | PC.NURSE ---
Went over paperwork with the patient, which he refused. He signed the proper form. Patient requested the number for soil checker cab. Care coordination was contacted for a cab voucher. When care coordination showed up, the patient was gone from the room.
== END 2020-09-30 13:55 | disposition home or self-care (01) | DRG 175 ==
LOC: ANHED 09-26 01:10 → ANHIMU 09-26 02:09
PROVIDERS: Internal Medicine Cardiovascular Disease; Internal Medicine Gastroenterology; Admitting Provider Family Medicine; Emergency Provider Emergency Medicine; Visit Provider Family Medicine
PROC: 0DJ08ZZ Inspection of Upper Intestinal Tract, Via Natural or Artificial Opening Endoscopic (ICD-10-PCS; CPT 43235; principal; 2020-09-28 12:45)
PROC: 4A023N7 Measurement of Cardiac Sampling and Pressure, Left Heart, Percutaneous Approach (ICD-10-PCS; CPT 93452; principal; 2020-09-29 10:00)
PROC: 02713ZZ Dilation of Coronary Artery, Two Arteries, Percutaneous Approach (ICD-10-PCS; CPT 92920; 2020-09-29 10:00)
PROC: 02713ZZ Dilation of Coronary Artery, Two Arteries, Percutaneous Approach (ICD-10-PCS; 2020-09-29 10:00)
DX: I25.10 Atherosclerotic heart disease of native coronary artery without angina pectoris (principal); T82.855A Stenosis of coronary artery stent, initial encounter; R07.89 Other chest pain; I25.5 Ischemic cardiomyopathy; K21.9 Gastro-esophageal reflux disease without esophagitis; D62 Acute posthemorrhagic anemia; K29.70 Gastritis, unspecified, without bleeding; K64.8 Other hemorrhoids; K63.5 Polyp of colon; E78.5 Hyperlipidemia, unspecified; G47.419 Narcolepsy without cataplexy; F17.220 Nicotine dependence, chewing tobacco, uncomplicated; F17.200 Nicotine dependence, unspecified, uncomplicated; I25.2 Old myocardial infarction; Z95.5 Presence of coronary angioplasty implant and graft; Z87.11 Personal history of peptic ulcer disease; Z91.14 Patient's other noncompliance with medication regimen
CPT/HCPCS: 36415; 36430; 71045; 71275; 80048; 80053; 80061; 83690; 83735; 84484; 85014; 85018; 85025; 85027; 86850; 86900; 86901; 86923; 88305; 88342; 92920; 93005; 93306; 93458; 96361; 96374; 96375; 96376; 99285; A9270; C1725; C1760; C1769; C1887; C1894; C9113; G0269; G0378; G0379; J0131; J0583; J1644; J2250; J2270; J2405; J2704; J3010; J7030; J7040; J7050; J7120; P9016; Q9957; Q9967